=== PATIENT | female | born 1995 | race Caucasian/White ===

== ENCOUNTER 2016-06-30 17:56 | Emergency (ER) | payer SELFPAY ==
[2016-06-30 19:23] LABS: Urine Appearance Slightly Cloudy; Urine Bilirubin Negative (NEGATIVE); Urine Blood Negative /ul (NEGATIVE); Urine Color Yellow; Urine Ketone Negative (NEGATIVE); Urine Specific Gravity 1.015 SP.GR. (1.005-1.010); Urine pH 7.5 pH (5.0-7.0)
[2016-06-30 19:24] LABS: Urine Bacteria None Seen; Urine Nitrite Negative (NEGATIVE); Urine Protein Negative (NEGATIVE); Urine RBC None Seen /hpf (0-5); Urine Urobilinogen Normal (NORMAL); Urine WBC 0-5 /hpf (0-5)
[2016-06-30 19:25] LABS: Urine Amorphous Sediment Moderate - 2+ (NONE-FEW)
--- OUTSIDE RECORDS SUMMARY | 2016-06-30 20:05 | XMS REPORT | Continuity of Care Document ---
:1995 Author Organization [facility] ([facility]) Address [address] [place] [address] Phone [phone] Care Team Providers Name Role Phone Provider, No-Primary Care Primary Care Provider Unavailable Source Comments This disclosure is being made pursuant to the Care Everywhere program, applicable federal and state laws, and may not contain all informaitonavailable regarding this patient.[facility] ([facility]) Active Allergies and Adverse Reactions Allergen Noted Date Severity Reactions Comments Meloxicam 09/28/2014 Rash Tramadol 04/07/2014 Pruritus Current Medications Prescription Sig. Disp. Refills Start Date End Date Status multivitamin Take 1 tablet by Active with minerals tablet mouth daily acetaminophen 500 mg Take 1,000 mg by Active tablet mouth every 6 hours as needed albuterol 90 Use 2 Puffs by 8.5 g 11 02/21/2015 Active mcg/Actuation inhaler inhalation every 6 hours as needed cyclobenzaprine 5 mg Take 1 tablet (5 10 tablet 0 02/21/2015 Active tablet mg total) by mouth 2 times daily as needed FLUoxetine 20 mg Take 20 mg by Active tablet mouth daily. ferrous gluconate 324 Take 1 tablet 60 tablet 11 07/25/2015 Active mg (38 mg iron) tablet (324 mg total) by mouth 2 times daily. docusate 100 mg Take 1 capsule 60 capsule 11 07/25/2015 Active capsule (100 mg total) by mouth 2 times daily as needed. 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 15% of type-specific donors will be compatible. A complete antiglobulin crossmatch will be necessary and extra time will be needed to find compat ible units prior to transfusion. Please contact the transfusion medicine resident at pager #[phone] with questions. 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
[2016-06-30] MEDS ORDERED: ONDANSETRON HCL/PF 2 MG/ML VIAL IV ONE (20:06)
[2016-06-30] MEDS ORDERED: NORMAL SALINE 1,000 ML IV ONE (20:06)
[2016-06-30] MEDS ORDERED: KETOROLAC TROMETHAMINE 30 MG/ML VIAL IV ONE (20:06)
--- OUTSIDE RECORDS SUMMARY | 2016-06-30 20:06 | XMS REPORT | CCD ---
:1995 Author Name NISHI OROPEZA Address [address] Unavailable [place], [place] [id number] Care Team Providers Name Role Phone NOEMÍ ORELLANA Attending Physician Unavailable NOEMÍ ORELLANA Er Physician 1 Unavailable ROLANDO Sims Registered Nurse Unavailable Vital Signs Vital Sign Value Unit Date/Time Recent/Initial? BP Systolic 114 mmHg 10/17/2014 21:58 Initial VS BP Diastolic 60 mmHg 10/17/2014 21:58 Initial VS Allergies Allergy Code Allergy Type Reaction Status MELOXICAM 61072 Drug allergy RASH Active TRAMADOL 02040 Drug allergy HIVES Active TORADOL 88539 Drug allergy ITCHING Active Procedures Procedure Code Procedure Type Date INJECT INFUSE NEC 9929 ICD-9 CM, Volume 3 10/17/2014 INJECT INFUSE NEC 9929 ICD-9 CM, Volume 3 10/17/2014 History of Immunizations Immunization Code Date OPV 02 1993 OPV 02 1993 OPV 02 1993 OPV 02 09/21/1997 MMR 03 01/15/1995 MMR 03 09/21/1997 Hib, unspecified formulation 17 1993 Hib, unspecified formulation 17 01/15/1995 DTP-Hib 22 1993 DTP-Hib 22 1993 Hep B, unspecified formulation 45 07/06/1998 Hep B, unspecified formulation 45 09/13/1998 Hep B, unspecified formulation 45 02/22/1999 HPV, quadrivalent 62 10/20/2007 DTaP, unspecified formulation 107 01/15/1995 DTaP, unspecified formulation 107 09/21/1997 Tdap 115 09/22/2007 Tdap 115 09/09/2013 Tdap 115 06/23/2014 Novel [id number] 127 04/27/2009 Influenza, seasonal, injectable 141 01/14/2014 no vaccine administered 998 1993 Problems Problem Code Start Date Resolved Date Status LIGHT CIGARETTE SMOKER (1-9 CIGS/DAY) 855828700 09/23/2011 Active Spontaneous vaginal delivery 78188457 08/25/2014 Active Results Unknown or Not Available. Active Medications Unknown or Not Available. Medications Administered During Visit Unknown or Not Available. Encounters Encounter Diagnosis Diagnosis Code Start Date MIGRNE UNSPEC W O MEN INTRCT MIGRNE 65860 10/17/2014 Social History Smoking Status Code Start Date End Date Never smoker [id number] Patient Decision Aids Unknown or Not Available. Discharge Instructions You were admitted to [facility] on 10/17/2014 with a principal diagnosis of MIGRNE UNSPEC W O MEN INTRCT MIGRNE. You had the following procedures done:INJECT INFUSE NECINJECT INFUSE NEC You were discharged from [facility] on 10/17/2014. Should you have any questions prior to discharge, please contact a member of your healthcare team. If you have left the hospital and have any questions, please contact your primary care physician. Chief Complaint and Reason For Visit Chief Complaint Date of Onset MIGRAIN Function Status Unknown or Not Available. Plan of Care Unknown or Not Available. Referral/Transition of Care Unknown or Not Available.
--- OUTSIDE RECORDS SUMMARY | 2016-06-30 20:06 | XMS REPORT | CCD ---
:1995 Author Name SHERON LOPEZ Address [address] [facility] Unavailable [place], [place] [id number] Care Team Providers Name Role Phone SOHEILA HERMAN Attending Physician Unavailable Vital Signs Unknown. Allergies Allergy Code Allergy Type Reaction Status No Known Allergies 0 No known allergies Active Procedures Unknown. History of Immunizations Unknown. Problems Problem Code Start Date Resolved Date Status BRONCHITIS 46993998 02/01/2011 Active ABDOMINAL PAIN 22939070 09/23/2011 Active LIGHT CIGARETTE SMOKER (1-9 CIGS/DAY) 582479922 09/23/2011 Active CHEST PAIN, NON-CARDIAC 496988908 10/22/2011 Active DEPRESSION 42062627 10/22/2011 Active OTITIS MEDIA 43781423 02/08/2012 Active POST TERM , DELIVERED WITH OR 543160859 08/14/2012 Active WITHOUT MENTION OF ANTEPARTUM CONDITION IMMEDIATE HEMORRHAGE, 97866153 08/23/2012 Active URINARY TRACT INFECTION 09636473 08/23/2012 Active Personal history of urinary calculi 593469181 Active Results . PANEL Test Name Code Test Result Test Units Test Date/Time WBC 6690-2 6.2000 K/uL 04/12/2013 16:30 RBC 789-8 3.9700 M/uL 04/12/2013 16:30 HEMOGLOBIN 718-7 12.1000 g/dL 04/12/2013 16:30 HEMATOCRIT 35.6000 % 04/12/2013 16:30 MCV 89.7000 fL 04/12/2013 16:30 MCH 30.5000 PG 04/12/2013 16:30 MCHC 34.0000 G/DL 04/12/2013 16:30 RDW-SD 40.1000 FL 04/12/2013 16:30 RDW-CV 12.6000 % 04/12/2013 16:30 PLATELETS 251.0000 K/UL 04/12/2013 16:30 MPV 10.5000 FL 04/12/2013 16:30 %GRAN 74.2000 % 04/12/2013 16:30 %LYMPH 17.2000 % 04/12/2013 16:30 %MONO 7.5000 % 04/12/2013 16:30 %EOS 0.8000 % 04/12/2013 16:30 %BASO 0.3000 % 04/12/2013 16:30 #GRAN 4.5800 K/UL 04/12/2013 16:30 #LYMPH 1.0600 K/UL 04/12/2013 16:30 #MONO 0.4600 K/UL 04/12/2013 16:30 #EOS 0.0500 K/UL 04/12/2013 16:30 #BASO 0.0200 K/UL 04/12/2013 16:30 MANUAL DIFF NOT INDICATED N/A 04/12/2013 16:30 ABO/RH A NEGATIVE N/A 04/12/2013 16:30 ANTIBODY SCRN NEGATIVE N/A 04/12/2013 16:30 UA W/MICROSCOPIC EXAM Test Name Code Test Result Test Units Test Date/Time COLOR UR YELLOW N/A 04/12/2013 16:11 CLARITY UR SL CLOUDY N/A 04/12/2013 16:11 SP GRAV UR 1.032 N/A 04/12/2013 16:11 PH UR 6.0 N/A 04/12/2013 16:11 PROTEIN UR 1+ N/A 04/12/2013 16:11 GLUCOSE UR NEGATIVE N/A 04/12/2013 16:11 KETONE UR NEGATIVE N/A 04/12/2013 16:11 BILIRUBIN UR NEGATIVE N/A 04/12/2013 16:11 BLOOD UR 2+ N/A 04/12/2013 16:11 LEUK UR NEGATIVE N/A 04/12/2013 16:11 NITRITE UR NEGATIVE N/A 04/12/2013 16:11 MICRO SEE BELOW N/A 04/12/2013 16:11 RBC/hpf 3 N/A 04/12/2013 16:11 WBC/hpf 1 N/A 04/12/2013 16:11 EPI UR 10-20 N/A 04/12/2013 16:11 BACTERIA UR MANY N/A 04/12/2013 16:11 MUCOUS NONE SEE N/A 04/12/2013 16:11 CAST NONE SEEN N/A 04/12/2013 16:11 CRYSTALS SEE BELOW N/A 04/12/2013 16:11 CULTURE? ORDERED N/A 04/12/2013 16:11 Medications Medication Code Dose Units Frequency Route Modification Start Stop Date/Time Date/Time Oral 954442 1 EACH Daily ORAL 08/16/2012 Tablet 12:47 Medications Administered Unknown. Encounters Encounter Diagnosis Diagnosis Code Start Date SCREENING NOS V289 04/12/2013 Social History Smoking Status Code Start Date End Date Never smoker [id number] Patient Decision Aids Unknown. Instructions You were admitted to [facility] on 04/12/2013 with a principle diagnosis of SCREENING NOS. You were discharged from [facility] on 04/12/2013. Should you have any questions prior to discharge, please contact a member of your healthcare team. If you have left the hospital and have any questions, please contact your primary care physician. Chief Complaint and Reason For Visit Unknown. Function Status Unknown. Plan of Care Diagnostic Test Pending Plan of Care Pending Diagnostic Test CULTURE URINE, [LOINC: 630-4], 04/12/2013 .OB HEPATITIS B SURFACE ANTIGEN, [LOINC: 36929-9], 04/12/2013 CHLAMYDIA AND GC BY DNA, [LOINC: 81399-5], 04/12/2013 HIV 1/2 AB, [LOINC: 14505-6], 04/12/2013 .OB RPR, [LOINC: 48295-2], 04/12/2013 .OB ANTIBODY RUBELLA, [LOINC: 5334-8], 04/12/2013 Referral/Transition of Care Unknown.
--- OUTSIDE RECORDS SUMMARY | 2016-06-30 20:06 | XMS REPORT | CCD ---
:1995 Author Name GONSALO GALLOWAY Address [address] [facility] [facility] Unavailable [place], [place] [id number] Care Team Providers Name Role Phone RUSLAN ROBBINS Attending Physician Unavailable Vital Signs Vital Sign Value Unit Date/Time Recent/Initial? Respiratory Rate 18 bpm 04/10/2014 11:58 Initial VS Heart Rate 92 bpm 04/10/2014 11:58 Initial VS Body Temperature 98.2 degrees 04/10/2014 11:58 Initial VS BP Systolic 98 mmHg 04/10/2014 12:07 Initial VS BP Diastolic 52 mmHg 04/10/2014 12:07 Initial VS BP Systolic 94 mmHg 04/10/2014 12:30 Most Recent VS BP Diastolic 52 mmHg 04/10/2014 12:30 Most Recent VS Respiratory Rate 16 bpm 04/10/2014 12:30 Most Recent VS Heart Rate 88 bpm 04/10/2014 12:30 Most Recent VS Body Temperature 98.1 degrees 04/10/2014 12:30 Most Recent VS Weight Measured 138 lbs 04/10/2014 12:33 Initial VS Height 62 in 04/10/2014 12:33 Initial VS BMI (Body Mass Index) 25.24 kg/m^2 04/10/2014 12:33 Initial VS BSA (Body Surface Area) 1.65 m^2 04/10/2014 12:33 Initial VS Allergies Allergy Code Allergy Type Reaction Status No Known Allergies 0 No known allergies Active Procedures Unknown or Not Available. History of Immunizations Immunization Code Date OPV 1993 OPV 1993 OPV 1993 OPV 09/21/1997 MMR 01/15/1995 MMR 09/21/1997 Hib, unspecified formulation 17 1993 Hib, unspecified formulation 17 01/15/1995 DTP-Hib 1993 DTP-Hib 1993 Hep B, unspecified formulation 45 07/06/1998 Hep B, unspecified formulation 45 09/13/1998 Hep B, unspecified formulation 45 02/22/1999 HPV, quadrivalent 62 10/20/2007 DTaP, unspecified formulation 107 01/15/1995 DTaP, unspecified formulation 107 09/21/1997 Tdap 115 09/22/2007 Tdap 115 09/09/2013 Novel [id number] 127 04/27/2009 Influenza, seasonal, injectable 141 01/14/2014 no vaccine administered 998 1993 Problems Problem Code Start Date Resolved Date Status BRONCHITIS 13689779 02/01/2011 Active ABDOMINAL PAIN 88834648 09/23/2011 Active LIGHT CIGARETTE SMOKER (1-9 CIGS/DAY) 400606579 09/23/2011 Active CHEST PAIN, NON-CARDIAC 458914918 10/22/2011 Active DEPRESSION 87185077 10/22/2011 Active OTITIS MEDIA 11505833 02/08/2012 Active POST TERM , DELIVERED WITH OR 954872072 08/14/2012 Active WITHOUT MENTION OF ANTEPARTUM CONDITION IMMEDIATE HEMORRHAGE, 92626671 08/23/2012 Active URINARY TRACT INFECTION 99084097 08/23/2012 Active Personal history of urinary calculi 371514557 Active Normal delivery 37409880 09/07/2013 Active Results Unknown or Not Available. Active Medications Unknown or Not Available. Medications Administered During Visit Unknown or Not Available. Encounters Encounter Diagnosis Diagnosis Code Start Date THREATEN ABORT-ANTEPART 99517 04/10/2014 Social History Smoking Status Code Start Date End Date Never smoker 128877483 Patient Decision Aids Unknown or Not Available. Discharge Instructions You were admitted to [facility] on 04/10/2014 with a principal diagnosis of THREATEN ABORT-ANTEPART. You were discharged from [facility] on 04/10/2014. Should you have any questions prior to discharge, please contact a member of your healthcare team. If you have left the hospital and have any questions, please contact your primary care physician. Chief Complaint and Reason For Visit Chief Complaint Date of Onset ABD PAIN Function Status Unknown or Not Available. Plan of Care Unknown or Not Available. Referral/Transition of Care Unknown or Not Available.
--- OUTSIDE RECORDS SUMMARY | 2016-06-30 20:06 | XMS REPORT | CCD ---
:1995 Author Name SHEREEN MARINELLI Address [address] [facility] Unavailable [place], [place] [phone] Care Team Providers Name Role Phone SOHEILA HERMAN Attending Physician Unavailable Vital Signs Vital Sign Value Unit Date/Time Recent/Initial? BP Systolic 112 mmHg 06/29/2013 21:09 Initial VS BP Diastolic 67 mmHg 06/29/2013 21:09 Initial VS Respiratory Rate 18 bpm 06/29/2013 21:09 Initial VS Heart Rate 100 bpm 06/29/2013 21:09 Initial VS Body Temperature 97.9 degrees 06/29/2013 21:09 Initial VS Weight Measured 137 lbs 06/29/2013 21:24 Initial VS Height 63 in 06/29/2013 21:24 Initial VS BMI (Body Mass Index) 24.27 kg/m^2 06/29/2013 21:24 Initial VS BSA (Body Surface Area) 1.66 m^2 06/29/2013 21:24 Initial VS Allergies Allergy Code Allergy Type Reaction Status No Known Allergies 0 No known allergies Active Procedures Unknown. History of Immunizations Unknown. Problems Problem Code Start Date Resolved Date Status BRONCHITIS 54569951 02/01/2011 Active ABDOMINAL PAIN 19717038 09/23/2011 Active LIGHT CIGARETTE SMOKER (1-9 CIGS/DAY) 163558890 09/23/2011 Active CHEST PAIN, NON-CARDIAC 276977376 10/22/2011 Active DEPRESSION 04381935 10/22/2011 Active OTITIS MEDIA 20562718 02/08/2012 Active POST TERM , DELIVERED WITH OR 613495086 08/14/2012 Active WITHOUT MENTION OF ANTEPARTUM CONDITION IMMEDIATE HEMORRHAGE, 45809947 08/23/2012 Active URINARY TRACT INFECTION 95082909 08/23/2012 Active Personal history of urinary calculi 193254192 Active Results Unknown. Medications Medication Code Dose Units Frequency Route Modification Start Stop Date/Time Date/Time Oral 146953 1 EACH Daily ORAL 08/16/2012 Tablet 12:47 Medications Administered Unknown. Encounters Encounter Diagnosis Diagnosis Code Start Date THRT CRYSTAL LABOR-ANTEPART 90361 06/29/2013 Social History Smoking Status Code Start Date End Date Never smoker 490804281 Patient Decision Aids Unknown. Discharge Instructions You were admitted to [facility] on 06/29/2013 with a principle diagnosis of THRT CRYSTAL LABOR-ANTEPART. You were discharged from [facility] on 06/29/2013. Should you have any questions prior to discharge, please contact a member of your healthcare team. If you have left the hospital and have any questions, please contact your primary care physician. Chief Complaint and Reason For Visit Unknown. Function Status Unknown. Plan of Care Unknown. Referral/Transition of Care Unknown.
--- OUTSIDE RECORDS SUMMARY | 2016-06-30 20:06 | XMS REPORT | CCD ---
:1995 Author Name EMILY SMITH Address [address] [facility] Unavailable [place], [place] [phone] Care Team Providers Name Role Phone MIKE SOUSA Attending Physician Unavailable Vital Signs Unknown or Not Available. Allergies Allergy Code Allergy Type Reaction Status TRAMADOL 58878 Drug allergy HIVES Active Procedures Unknown or Not Available. History of Immunizations Immunization Code Date OPV 1993 OPV 02 1993 OPV 02 1993 [...] Tdap 115 09/09/2013 Tdap 115 06/23/2014 Novel [id number] 127 04/27/2009 Influenza, seasonal, injectable 141 01/14/2014 no vaccine administered 998 1993 Problems Problem Code Start Date Resolved Date Status LIGHT CIGARETTE SMOKER (1-9 CIGS/DAY) 862289933 09/23/2011 Active Spontaneous vaginal delivery 89267917 08/25/2014 Active Results Unknown or Not Available. Active Medications Medication Code Dose Units Frequency Route Modification Start Date/Time Dermoplast 194529 1 APPLICATIONS NEEDED TOPICALLY 08/27/2014 20%-0.5% 12:06 Topical application Magnolia Prescription Detail APPLY 1 APPLICATIONS TOPICALLY NEEDED Docusate Sodium 100MG 2387231 100 MILLIGRAMS TWICE A DAY BY MOUTH 08/27 12:06 Oral Capsule Prescription Detail TAKE 100 MILLIGRAMS BY MOUTH TWICE A DAY Ferrous Sulfate 325MG 073345 325 MILLIGRAMS TWICE A DAY BY MOUTH 2014 12:06 Oral Tablet, Enteric Coated Prescription Detail TAKE 325 MILLIGRAMS BY MOUTH TWICE A DAY Tucks 50% Topical 85630538709 1 EA PRN NEEDED TOPICALLY 08/27/2014 12:06 application Pad Prescription Detail APPLY 1 EA TOPICALLY PRN NEEDED Ibuprofen 600MG Oral 244779 600 MILLIGRAMS PRN Q 6 HR BY MOUTH 2014 12:05 Tablet Prescription Detail TAKE 600 MILLIGRAMS BY MOUTH PRN Q 6 HR Mapap 325MG Oral Tablet 125678 650 MILLIGRAMS PRN Q 4HR BY MOUTH 2014 12:05 Prescription Detail TAKE 650 MILLIGRAMS BY MOUTH PRN Q 4HR Formula Oral Tablet 694574 1 EACH DAILY ORAL 02/16/2014 12:25 Prescription Detail TAKE 1 EACH ORAL DAILY Medications Administered During Visit Unknown or Not Available. Encounters Encounter Diagnosis Diagnosis Code Start Date OTH CURR COND- 17417 08/30/2014 Social History Smoking Status Code Start Date End Date Never smoker 266704334 Patient Decision Aids Unknown or Not Available. Discharge Instructions You were admitted to [facility] on 08/30/2014 with a principal diagnosis of OTH CURR COND-. You were discharged from [facility] on 08/30/2014. Should you have any questions prior to discharge, please contact a member of your healthcare team. If you have left the hospital and have any questions, please contact your primary care physician. Chief Complaint and Reason For Visit Unknown or Not Available. Function Status Unknown or Not Available. Plan of Care Unknown or Not Available. Referral/Transition of Care Unknown or Not Available.
--- OUTSIDE RECORDS SUMMARY | 2016-06-30 20:06 | XMS REPORT | CCD ---
:1995 Author Name SHERON LOPEZ Address [address] [facility] Unavailable [place], [place] [phone] Care Team Providers Name Role Phone SOHEILA HERMAN Attending Physician Unavailable Vital Signs Unknown. Allergies Allergy Code Allergy Type Reaction Status No Known Allergies 0 No known allergies Active Procedures Unknown. History of Immunizations Unknown. Problems Problem Code Start Date Resolved Date Status BRONCHITIS 11505754 02/01/2011 Active ABDOMINAL PAIN 72065647 09/23/2011 Active LIGHT CIGARETTE SMOKER (1-9 CIGS/DAY) 566106781 09/23/2011 Active CHEST PAIN, NON-CARDIAC 679156676 10/22/2011 Active DEPRESSION 54616145 10/22/2011 Active OTITIS MEDIA 57638159 02/08/2012 Active POST TERM , DELIVERED WITH OR 226208492 08/14/2012 Active WITHOUT MENTION OF ANTEPARTUM CONDITION IMMEDIATE HEMORRHAGE, 74374683 08/23/2012 Active URINARY TRACT INFECTION 25012226 08/23/2012 Active Personal history of urinary calculi 324352379 Active Results Unknown. Medications Medication Code Dose Units Frequency Route Modification Start Stop Date/Time Date/Time Oral 212298 1 EACH Daily ORAL 08/16/2012 Tablet 12:47 Medications Administered Unknown. Encounters Encounter Diagnosis Diagnosis Code Start Date ENCOUNTER FOR ANATOMIC SURVEY V2881 04/20/2013 Social History Smoking Status Code Start Date End Date Never smoker [id number] Patient Decision Aids Unknown. Instructions You were admitted to [facility] on 04/20/2013 with a principle diagnosis of ENCOUNTER FOR ANATOMIC SURVEY. You were discharged from [facility] on 04/20/2013. Should you have any questions prior to discharge, please contact a member of your healthcare team. If you have left the hospital and have any questions, please contact your primary care physician. Chief Complaint and Reason For Visit Unknown. Function Status Unknown. Plan of Care Unknown. Referral/Transition of Care Unknown.
--- OUTSIDE RECORDS SUMMARY | 2016-06-30 20:06 | XMS REPORT | CCD ---
:1995 Author Name SHEREEN MARINELLI Address [address] [facility] Unavailable [place], [place] [id number] Care Team Providers Name Role Phone SOHEILA HERMAN Attending Physician Unavailable EDWAR Lynch Registered Nurse Unavailable Vital Signs Vital Sign Value Unit Date/Time Recent/Initial? Weight Measured 148.8 lbs 07/22/2013 12:11 Initial VS Height 63 in 07/22/2013 12:11 Initial VS BMI (Body Mass Index) 26.22 kg/m^2 07/22/2013 12:11 Initial VS BSA (Body Surface Area) 1.73 m^2 07/22/2013 12:11 Initial VS BP Systolic 121 mmHg 07/22/2013 12:26 Initial VS BP Diastolic 61 mmHg 07/22/2013 12:26 Initial VS Respiratory Rate 18 bpm 07/22/2013 12:26 Initial VS Heart Rate 108 bpm 07/22/2013 12:26 Initial VS Body Temperature 95.2 degrees 07/22/2013 12:26 Initial VS Allergies Allergy Code Allergy Type Reaction Status No Known Allergies 0 No known allergies Active Procedures Unknown. History of Immunizations Immunization Code Date OPV [...] unspecified formulation 107 09/21/1997 Tdap 115 09/22/2007 Novel [id number] 127 04/27/2009 no vaccine administered 998 1993 Problems Problem Code Start Date Resolved Date Status BRONCHITIS 46533459 02/01/2011 Active ABDOMINAL PAIN 06396221 09/23/2011 Active LIGHT CIGARETTE SMOKER (1-9 CIGS/DAY) 003002091 09/23/2011 Active CHEST PAIN, NON-CARDIAC 904156845 10/22/2011 Active DEPRESSION 42387587 10/22/2011 Active OTITIS MEDIA 12683788 02/08/2012 Active POST TERM , DELIVERED WITH OR 182695184 08/14/2012 Active WITHOUT MENTION OF ANTEPARTUM CONDITION IMMEDIATE HEMORRHAGE, 15328545 08/23/2012 Active URINARY TRACT INFECTION 09675784 08/23/2012 Active Personal history of urinary calculi 075614862 Active Results COMPREHENSIVE METABOLIC PANEL Test Name Code Test Result Test Units Test Date/Time GLUCOSE 82.0000 mg/dL 07/22/2013 13:46 SODIUM 137.0000 mmol/L 07/22/2013 13:46 POTASSIUM 4.0000 mmol/L 07/22/2013 13:46 CHLORIDE 104.0000 mmol/L 07/22/2013 13:46 CO2 24.0000 mmol/L 07/22/2013 13:46 BUN 6.0000 mg/dL 07/22/2013 13:46 CREATININE 0.4000 mg/dL 07/22/2013 13:46 BUN/CREAT 15.0000 07/22/2013 13:46 CALCIUM 8.8000 mg/dL 07/22/2013 13:46 TOTAL BILI 0.1000 mg/dL 07/22/2013 13:46 TOTAL PROTEIN 6.8000 g/dL 07/22/2013 13:46 ALBUMIN 2.5000 g/dL 07/22/2013 13:46 A/G RATIO 0.6000 07/22/2013 13:46 ALKALINE PHOS 152.0000 IU/L 07/22/2013 13:46 AST/SGOT 24.0000 IU/L 07/22/2013 13:46 ALT/SGPT 52.0000 IU/L 07/22/2013 13:46 ANION GAP 13.5000 mmol/L 07/22/2013 13:46 AGE 18.0000 YEARS 07/22/2013 13:46 GFR 216.2900 ml/min 07/22/2013 13:46 URINALYSIS Test Name Code Test Result Test Units Test Date/Time COLOR UR LT YELLOW N/A 07/22/2013 13:34 CLARITY UR CLEAR N/A 07/22/2013 13:34 SP GRAV UR 1.015 N/A 07/22/2013 13:34 PH UR 7.5 N/A 07/22/2013 13:34 PROTEIN UR TRACE N/A 07/22/2013 13:34 GLUCOSE UR NEGATIVE N/A 07/22/2013 13:34 KETONE UR NEGATIVE N/A 07/22/2013 13:34 BILIRUBIN UR NEGATIVE N/A 07/22/2013 13:34 BLOOD UR NEGATIVE N/A 07/22/2013 13:34 LEUK UR 3+ N/A 07/22/2013 13:34 NITRITE UR NEGATIVE N/A 07/22/2013 13:34 MICROSCOPIC NOT INDICAT N/A 07/22/2013 13:34 CULTURE? YES N/A 07/22/2013 13:34 CBC WITH DIFFERENTIAL Test Name Code Test Result Test Units Test Date/Time WBC 6690-2 17.6000 K/uL 07/22/2013 13:46 RBC 789-8 3.5200 M/uL 07/22/2013 13:46 HEMOGLOBIN 718-7 11.0000 g/dL 07/22/2013 13:46 HEMATOCRIT 32.4000 % 07/22/2013 13:46 MCV 92.0000 fL 07/22/2013 13:46 MCH 31.3000 PG 07/22/2013 13:46 MCHC 34.0000 G/DL 07/22/2013 13:46 RDW-SD 42.2000 FL 07/22/2013 13:46 RDW-CV 12.8000 % 07/22/2013 13:46 PLATELETS 368.0000 K/UL 07/22/2013 13:46 MPV 10.1000 FL 07/22/2013 13:46 %GRAN 75.0000 % 07/22/2013 13:46 %LYMPH 17.0000 % 07/22/2013 13:46 %MONO 7.2000 % 07/22/2013 13:46 %EOS 0.6000 % 07/22/2013 13:46 %BASO 0.2000 % 07/22/2013 13:46 #GRAN 13.2200 K/UL 07/22/2013 13:46 #LYMPH 3.0000 K/UL 07/22/2013 13:46 #MONO 1.2700 K/UL 07/22/2013 13:46 #EOS 0.1100 K/UL 07/22/2013 13:46 #BASO 0.0400 K/UL 07/22/2013 13:46 SLIDE REVIEWED? NOT INDICATED N/A 07/22/2013 13:46 MANUAL DIFF NOT INDICATED N/A 07/22/2013 13:46 Medications Medication Code Dose Units Frequency Route Modification Start Stop Date/Time Date/Time Oral 042256 1 EACH Daily ORAL 08/16/2012 Tablet 12:47 Medications Administered Unknown. Encounters Encounter Diagnosis Diagnosis Code Start Date THRT CRYSTAL LABOR-ANTEPART 04928 07/22/2013 Social History Smoking Status Code Start Date End Date Never smoker [id number] Patient Decision Aids Unknown. Discharge Instructions You were admitted to [facility] on 07/22/2013 with a principle diagnosis of THRT CRYSTAL LABOR-ANTEPART. You had the following procedures done: NON-STRESS TEST You were discharged from [facility] on 07/22/2013. Should you have any questions prior to discharge, please contact a member of your healthcare team. If you have left the hospital and have any questions, please contact your primary care physician.For undelivered patients, call MD if:Severe headaches, blurred vision, Dizziness.Increased swelling that doesn't go away, Vaginal bleeding.Water breaks or you have leaking fluid, Contractions in a regular pattern.You do not feel your baby move in 8 hrs, Uncontrolled urge to push.Change in condition that concerns you, Any questions about your condition.Patient condition at discharge:Not in labor.Discharge via:Ambulatory.Accompanied by:Significant other.Additional Instructions:Drink 10-12 glasses of fluid daily.Medication Instructions:Rx called to [facility] for cipro 500mg two times a day for 7 days Chief Complaint and Reason For Visit Unknown. Function Status Unknown. Plan of Care Unknown. Referral/Transition of Care Unknown.
--- OUTSIDE RECORDS SUMMARY | 2016-06-30 20:06 | XMS REPORT | CCD ---
:1995 Author Name SHEREEN MARINELLI Address [address] [facility] Unavailable [place], [place] [phone] Care Team Providers Name Role Phone SOHEILA HERMAN Attending Physician Unavailable Vital Signs Vital Sign Value Unit Date/Time Recent/Initial? BP Systolic 98 mmHg 08/24/2013 10:53 Initial VS BP Diastolic 69 mmHg 08/24/2013 10:53 Initial VS Respiratory Rate 18 bpm 08/24/2013 10:53 Initial VS Heart Rate 103 bpm 08/24/2013 10:53 Initial VS Body Temperature 97.2 degrees 08/24/2013 10:53 Initial VS BP Systolic 108 mmHg 08/24/2013 12:58 Most Recent VS BP Diastolic 67 mmHg 08/24/2013 12:58 Most Recent VS Respiratory Rate 18 bpm 08/24/2013 12:58 Most Recent VS Heart Rate 63 bpm 08/24/2013 12:58 Most Recent VS Weight Measured 151 lbs 08/24/2013 13:37 Initial VS Height 62 in 08/24/2013 13:37 Initial VS BMI (Body Mass Index) 27.62 kg/m^2 08/24/2013 13:37 Initial VS BSA (Body Surface Area) 1.73 m^2 08/24/2013 13:37 Initial VS Allergies Allergy Code Allergy Type Reaction Status No Known Allergies 0 No known allergies Active Procedures Unknown or Not Available. History of Immunizations Immunization Code Date OPV 1993 OPV 1993 OPV 1993 OPV 02 09/21/1997 MMR 03 01/15/1995 MMR 03 09/21/1997 Hib, unspecified formulation 17 1993 Hib, unspecified formulation 17 01/15/1995 DTP-Hib 22 1993 DTP-Hib 22 1993 Hep B, unspecified formulation 45 07/06/1998 Hep B, unspecified formulation 45 09/13/1998 Hep B, unspecified formulation 45 02/22/1999 HPV, quadrivalent 62 10/20/2007 DTaP, unspecified formulation 107 01/15/1995 DTaP, unspecified formulation 107 09/21/1997 Tdap 115 09/22/2007 Novel [id number] 127 04/27/2009 no vaccine administered 998 1993 Problems Problem Code Start Date Resolved Date Status BRONCHITIS 67333737 02/01/2011 Active ABDOMINAL PAIN 71684581 09/23/2011 Active LIGHT CIGARETTE SMOKER (1-9 CIGS/DAY) 379724506 09/23/2011 Active CHEST PAIN, NON-CARDIAC 488375712 10/22/2011 Active DEPRESSION 37828990 10/22/2011 Active OTITIS MEDIA 05932830 02/08/2012 Active POST TERM , DELIVERED WITH OR 607605207 08/14/2012 Active WITHOUT MENTION OF ANTEPARTUM CONDITION IMMEDIATE HEMORRHAGE, 80909423 08/23/2012 Active URINARY TRACT INFECTION 61354460 08/23/2012 Active Personal history of urinary calculi 921961981 Active Results Unknown or Not Available. Medications Medication Code Dose Units Frequency Route Modification Start Stop Date/Time Date/Time Oral 829765 1 EACH Daily ORAL 08/16/2012 Tablet 12:47 Medications Administered Unknown or Not Available. Encounters Encounter Diagnosis Diagnosis Code Start Date THRT CRYSTAL LABOR-ANTEPART 33320 08/24/2013 Social History Smoking Status Code Start Date End Date Never smoker [id number] Patient Decision Aids Unknown or Not Available. Discharge Instructions You were admitted to [facility] on 08/24/2013 with a principal diagnosis of THRT CRYSTAL LABOR-ANTEPART. You had the following procedures done: NON-STRESS TEST You were discharged from [facility] on 08/24/2013. Should you have any questions prior to [...]
--- OUTSIDE RECORDS SUMMARY | 2016-06-30 20:06 | XMS REPORT | CCD ---
:1995 Author Name GONSALO GALLOWAY Address [address] [facility] Unavailable [place], [place] [address] Care Team Providers Name Role Phone RUSLAN ROBBINS Attending Physician ROJELIO Ramirez Registered Nurse Unavailable Vital Signs Vital Sign Value Unit Date/Time Recent/Initial? Respiratory Rate 24 bpm 08/24/2014 19:30 Initial VS Weight Measured 179 lbs 08/24/2014 19:33 Initial VS Height 63 in 08/24/2014 19:33 Initial VS BMI (Body Mass Index) 31.71 kg/m^2 08/24/2014 19:33 Initial VS BSA (Body Surface Area) 1.9 m^2 08/24/2014 19:33 Initial VS Heart Rate 82 bpm 08/24/2014 19:56 Initial VS O2 % BldC Oximetry 98 % 08/24/2014 19:56 Initial VS BP Systolic 111 mmHg 08/24/2014 20:06 Initial VS BP Diastolic 67 mmHg 08/24/2014 20:06 Initial VS Body Temperature 97 degrees 08/24/2014 20:06 Initial VS O2 % BldC Oximetry 96 % 08/25/2014 04:37 Most Recent VS BP Systolic 123 mmHg 08/27/2014 12:45 Most Recent VS BP Diastolic 62 mmHg 08/27/2014 12:45 Most Recent VS Respiratory Rate 16 bpm 08/27/2014 12:45 Most Recent VS Heart Rate 72 bpm 08/27/2014 12:45 Most Recent VS Body Temperature 97.3 degrees 08/27/2014 12:45 Most Recent VS Allergies Allergy Code Allergy Type Reaction Status TRAMADOL 65644 Drug allergy HIVES Active Procedures Procedure Code Procedure Type Date MANUAL ASSIST DELIV NEC 7359 ICD-9 CM, Volume 3 08/25/2014 History of Immunizations Immunization Code Date OPV 1993 OPV 02 1993 OPV 1993 OPV 02 09/21/1997 MMR 03 01/15/1995 MMR 09/21/1997 Hib, unspecified formulation 17 1993 Hib, unspecified formulation 17 01/15/1995 DTP-Hib 22 1993 DTP-Hib 22 1993 Hep B, unspecified formulation 45 07/06/1998 Hep B, unspecified formulation 45 09/13/1998 Hep B, unspecified formulation 45 02/22/1999 HPV, quadrivalent 62 10/20/2007 DTaP, unspecified formulation 107 01/15/1995 DTaP, unspecified formulation 107 09/21/1997 Tdap 115 09/22/2007 Tdap 115 09/09/2013 Tdap 115 06/23/2014 Novel [id number] 127 04/27/2009 Influenza, seasonal, injectable 141 01/14/2014 no vaccine administered 998 1993 Problems Problem Code Start Date Resolved Date Status LIGHT CIGARETTE SMOKER (1-9 CIGS/DAY) 570450794 09/23/2011 Active Spontaneous vaginal delivery 72489509 08/25/2014 Active Results CBC W/DIFF - Collect Date/Time: 08/24/2014 19:55 Test Name Code Test Result Test Units Test Ref Range WBC 6690-2 15.3 K/uL L=3.2 H=10.0 RBC 789-8 3.77 M/uL L=4.00 H=5.20 HEMOGLOBIN 718-7 10.2 g/dL L=12.1 H=15.6 HEMATOCRIT 31.1 % L=35.0 H=47.0 MCV 82.5 fL L=81.0 H=101 MCH 27.1 PG L=26.0 H=38.0 MCHC 32.8 G/DL L=31.0 H=37.0 RDW-SD 43.9 FL L=37.0 H=54.0 RDW-CV 14.9 % L=11.0 H=16.0 PLATELETS 312 K/UL L=140 H=380 MPV 11.1 FL L=9.0 H=13.0 %GRAN 71.9 % L=0.0 H=75.0 %LYMPH 18.4 % L=0.0 H=50.0 %MONO 8.6 % L=0.0 H=14.0 %EOS 1.0 % L=0.0 H=6.0 %BASO 0.1 % L=0.0 H=1.0 #GRAN 10.98 K/UL L=1.80 H=7.80 #LYMPH 2.81 K/UL L=0.30 H=4.00 #MONO 1.31 K/UL L=0.00 H=0.70 #EOS 0.16 K/UL L=0.00 H=0.40 #BASO 0.02 K/UL L=0.00 H=0.10 SLIDE REVIEWED? NOT INDICATED N/A MANUAL DIFF NOT INDICATED N/A HEMOGLOBIN AND HEMATOCRIT - Collect Date/Time: 08/26/2014 07:25 Test Name Code Test Result Test Units Test Ref Range HEMOGLOBIN 718-7 8.3 g/dL L=12.1 H=15.6 HEMATOCRIT 25.6 % L=35.0 H=47.0 BB SCREEN - Collect Date/Time: 08/26/2014 07:25 Test Name Code Test Result Test Units Test Ref Range SCREEN NEGATIVE N/A NORMAL:NEGATIVE BB RHOGAM - Collect Date/Time: 08/26/2014 07:25 Test Name Code Test Result Test Units Test Ref Range LOT # [id number] N/A EXPIRATION 04/28/2016 N/A Active Medications Medication Code Dose Units Frequency Route Modification Start Date/Time Dermoplast 394930 1 APPLICATIONS NEEDED TOPICALLY 08/27/2014 20%-0.5% 12:06 Topical application [place] Docusate 5285834 100 MILLIGRAMS TWICE A BY MOUTH 08/27/2014 Sodium 100MG DAY 12:06 Oral Capsule Ferrous 497142 325 MILLIGRAMS TWICE A BY MOUTH 08/27/2014 Sulfate DAY 12:06 325MG Oral Tablet, Enteric Coated Tucks 50% [id number] 1 EA PRN TOPICALLY 08/27/2014 Topical NEEDED 12:06 application Pad Ibuprofen 081790 600 MILLIGRAMS PRN Q 6 HR BY MOUTH 08/27/2014 600MG Oral 12:05 Tablet Mapap 325MG 596204 650 MILLIGRAMS PRN Q 4HR BY MOUTH 08/27/2014 Oral Tablet 12:05 034177 1 EACH DAILY ORAL 02/16/2014 Formula Oral 12:25 Tablet Medications Administered During Visit Medication Dose Units Frequency Route Date/Time of Last Dose SODIUM CHLORIDE LOCK FLUSH 3 ML EVERY 12 HOURS IV PUSH 08/26/2014 07:33 : 3ML SODIUM CHLORIDE LOCK FLUSH 3 ML PRN IV PUSH 08/26/2014 14:17 : 3ML NALBUPHINE(NUBAIN)INJ 10 MG X1 IV PUSH 08/25/2014 02:02 20MG/ML:1ML IBUPROFEN(MOTRIN)TAB:600MG 600 MG PRN Q 6 HR ORAL 08/27/2014 07:52 ACETAMINOPHEN(TYLENOL)TAB:3 650 MG PRN Q 4HR ORAL 08/26/2014 21:07 25MG HAMAMELIS LEAF/GLYCE 1 PAD PRN NEEDED TOPICAL 08/26/2014 14:17 (TUCKS) PAD OXYTOCIN (PITOCIN) INJ : 10 10 UNIT DIRECTED IM 08/25/2014 07:56 UNITS DOCUSATE SODIUM CAP : 100MG 100 MG TWICE DAILY ORAL 08/27/2014 07:52 VIT (NATALCARE PIC 1 TAB DAILY ORAL 08/27/2014 07:52 FORTE):TAB BENZOCAINE/MENTHOL/ALOE/LINDA 1 APPL PRN TOPICAL 08/26/2014 14:17 O(DERMOPLAST) FERROUS SULFATE (FEOSOL) 325 MG DAILY WITH FOOD ORAL 08/26/2014 17:10 TAB : 325MG ONDANSETRON INJ 2MG/ML: 2ML 4 MG X1 IV PUSH 08/26/2014 14:17 FERROUS SULFATE (FEOSOL) 325 MG TWICE DAILY ORAL 08/27/2014 07:52 TAB : 325MG Encounters Encounter Diagnosis Diagnosis Code Start Date RH ISOIMMUNIZAT-DELIVER 41700 08/24/2014 Social History Smoking Status Code Start Date End Date Former smoker [id number] Patient Decision Aids Patient Decision Aid [facility] Patient Educational materials Discharge Instructions You were admitted to [facility] on 08/24/2014 with a principal diagnosis of RH ISOIMMUNIZAT-DELIVER. You had the following procedures done:MANUAL ASSIST DELIV NEC You were discharged from [facility] on 08/27/2014. Should you have any questions prior to discharge, please contact a member of your healthcare team. If you have left the hospital and have any questions, please contact your primary care physician. Chief Complaint and Reason For Visit Chief Complaint Date of Onset LABOR AND DEL Function Status Unknown or Not Available. Plan of Care Unknown or Not Available. Referral/Transition of Care Unknown or Not Available.
--- OUTSIDE RECORDS SUMMARY | 2016-06-30 20:06 | XMS REPORT | CCD ---
:1995 Author Name SHERON LOPEZ Address [address] [facility] Unavailable [place], [place] [id number] Care Team Providers Name Role Phone SOHEILA HERMAN Attending Physician Unavailable Vital Signs Unknown. Allergies Allergy Code Allergy Type Reaction Status No Known Allergies 0 No known allergies Active Procedures Unknown. History of Immunizations Unknown. Problems Problem Code Start Date Resolved Date Status BRONCHITIS 26945596 02/01/2011 Active ABDOMINAL PAIN 44329159 09/23/2011 Active LIGHT CIGARETTE SMOKER (1-9 CIGS/DAY) 687184482 09/23/2011 Active CHEST PAIN, NON-CARDIAC 347852589 10/22/2011 Active DEPRESSION 82479392 10/22/2011 Active OTITIS MEDIA 89252487 02/08/2012 Active POST TERM , DELIVERED WITH OR 611943881 08/14/2012 Active WITHOUT MENTION OF ANTEPARTUM CONDITION IMMEDIATE HEMORRHAGE, 07972354 08/23/2012 Active URINARY TRACT INFECTION 10927157 08/23/2012 Active Personal history of urinary calculi 767691547 Active Results COMPREHENSIVE METABOLIC PANEL Test Name Code Test Result Test Units Test Date/Time GLUCOSE 89.0000 mg/dL 07/15/2013 14:58 SODIUM 139.0000 mmol/L 07/15/2013 14:58 POTASSIUM 3.6000 mmol/L 07/15/2013 14:58 CHLORIDE 107.0000 mmol/L 07/15/2013 14:58 CO2 22.0000 mmol/L 07/15/2013 14:58 BUN 6.0000 mg/dL 07/15/2013 14:58 CREATININE 0.5000 mg/dL 07/15/2013 14:58 BUN/CREAT 12.0000 07/15/2013 14:58 CALCIUM 8.5000 mg/dL 07/15/2013 14:58 TOTAL BILI 0.1000 mg/dL 07/15/2013 14:58 TOTAL PROTEIN 5.8000 g/dL 07/15/2013 14:58 ALBUMIN 2.5000 g/dL 07/15/2013 14:58 A/G RATIO 0.8000 07/15/2013 14:58 ALKALINE PHOS 120.0000 IU/L 07/15/2013 14:58 AST/SGOT 14.0000 IU/L 07/15/2013 14:58 ALT/SGPT 17.0000 IU/L 07/15/2013 14:58 ANION GAP 13.4000 mmol/L 07/15/2013 14:58 AGE 18.0000 YEARS 07/15/2013 14:58 GFR 167.1800 ml/min 07/15/2013 14:58 URINALYSIS Test Name Code Test Result Test Units Test Date/Time COLOR UR LT YELLOW N/A 07/15/2013 14:52 CLARITY UR CLEAR N/A 07/15/2013 14:52 SP GRAV UR 1.008 N/A 07/15/2013 14:52 PH UR 6.5 N/A 07/15/2013 14:52 PROTEIN UR NEGATIVE N/A 07/15/2013 14:52 GLUCOSE UR NEGATIVE N/A 07/15/2013 14:52 KETONE UR NEGATIVE N/A 07/15/2013 14:52 BILIRUBIN UR NEGATIVE N/A 07/15/2013 14:52 BLOOD UR NEGATIVE N/A 07/15/2013 14:52 LEUK UR TRACE N/A 07/15/2013 14:52 NITRITE UR NEGATIVE N/A 07/15/2013 14:52 MICROSCOPIC NOT INDICAT N/A 07/15/2013 14:52 CULTURE? NO N/A 07/15/2013 14:52 Medications Medication Code Dose Units Frequency Route Modification Start Stop Date/Time Date/Time Oral 037098 1 EACH Daily ORAL 08/16/2012 Tablet 12:47 Medications Administered Unknown. Encounters Encounter Diagnosis Diagnosis Code Start Date SCREENING NOS V289 07/15/2013 Social History Smoking Status Code Start Date End Date Never smoker [id number] Patient Decision Aids Unknown. Discharge Instructions You were admitted to [facility] on 07/15/2013 with a principle diagnosis of SCREENING NOS. You had the following procedures done:DX ULTRASOUND-ABDOMEN You were discharged from [facility] on 07/15/2013. Should you have any questions prior to discharge, please contact a member of your healthcare team. If you have left the hospital and have any questions, please contact your primary care physician. Chief Complaint and Reason For Visit Unknown. Function Status Unknown. Plan of Care Unknown. Referral/Transition of Care Unknown.
--- OUTSIDE RECORDS SUMMARY | 2016-06-30 20:06 | XMS REPORT | CCD ---
:1995 Author Name SHERON LOPEZ Address [address] [facility] Unavailable [place], [place] [id number] Care Team Providers Name Role Phone SOHEILA HERMAN Attending Physician Unavailable Vital Signs Unknown. Allergies Allergy Code Allergy Type Reaction Status No Known Allergies 0 No known allergies Active Procedures Unknown. History of Immunizations Unknown. Problems Problem Code Start Date Resolved Date Status BRONCHITIS 53775153 02/01/2011 Active ABDOMINAL PAIN 95457427 09/23/2011 Active LIGHT CIGARETTE SMOKER (1-9 CIGS/DAY) 872849341 09/23/2011 Active CHEST PAIN, NON-CARDIAC 118651250 10/22/2011 Active DEPRESSION 28018481 10/22/2011 Active OTITIS MEDIA 10699034 02/08/2012 Active POST TERM , DELIVERED WITH OR 418781773 08/14/2012 Active WITHOUT MENTION OF ANTEPARTUM CONDITION IMMEDIATE HEMORRHAGE, 90010618 08/23/2012 Active URINARY TRACT INFECTION 34639459 08/23/2012 Active Personal history of urinary calculi 203501212 Active Results Unknown. Medications Medication Code Dose Units Frequency Route Modification Start Stop Date/Time Date/Time Oral 929368 1 EACH Daily ORAL 08/16/2012 Tablet 12:47 Medications Administered Unknown. Encounters Encounter Diagnosis Diagnosis Code Start Date ENCOUNTER FOR ANATOMIC SURVEY V2881 05/25/2013 Social History Smoking Status Code Start Date End Date Never smoker [id number] Patient Decision Aids Unknown. Instructions You were admitted to [facility] on 05/25/2013 with a principle diagnosis of ENCOUNTER FOR ANATOMIC SURVEY. You had the following procedures done:DX ULTRASOUND-GRAV UTER You were discharged from [facility] on 05/25/2013. Should you have any questions prior to discharge, please contact a member of your healthcare team. If you have left the hospital and have any questions, please contact your primary care physician. Chief Complaint and Reason For Visit Unknown. Function Status Unknown. Plan of Care Unknown. Referral/Transition of Care Unknown.
--- OUTSIDE RECORDS SUMMARY | 2016-06-30 20:06 | XMS REPORT | CCD ---
:1995 Author Name SHERON LOPEZ Address [address] [facility] Unavailable [place], [place] [phone] Care Team Providers Name Role Phone MIKE SOUSA Attending Physician Unavailable Vital Signs Unknown or Not Available. Allergies Allergy Code Allergy Type Reaction Status TRAMADOL 30170 Drug allergy HIVES Active Procedures Unknown or [...] Tdap 115 09/09/2013 Tdap 115 06/23/2014 Novel [id number] 127 04/27/2009 Influenza, seasonal, injectable 141 01/14/2014 no vaccine administered 998 1993 Problems Problem Code Start Date Resolved Date Status BRONCHITIS 15437169 02/01/2011 Active ABDOMINAL PAIN 16840610 09/23/2011 Active LIGHT CIGARETTE SMOKER (1-9 CIGS/DAY) 882276796 09/23/2011 Active CHEST PAIN, NON-CARDIAC 407254115 10/22/2011 Active DEPRESSION 99550789 10/22/2011 Active OTITIS MEDIA 18078231 02/08/2012 Active POST TERM , DELIVERED WITH OR 190490539 08/14/2012 Active WITHOUT MENTION OF ANTEPARTUM CONDITION IMMEDIATE HEMORRHAGE, 83057891 08/23/2012 Active URINARY TRACT INFECTION 41070701 08/23/2012 Active Personal history of urinary calculi 859770895 Active Normal delivery 81712231 09/07/2013 Active Results Unknown or Not Available. Active Medications Medication Code Dose Units Frequency Route Modification Start Date/Time Latuda 20MG Oral 4143425 20 MILLIGRAMS DAILY ORAL 08/01/2014 Tablet 22:39 Macrodantin 100MG 151715 100 MILLIGRAMS DAILY ORAL 08/01/2014 Oral Capsule 22:39 Formula 666623 1 EACH DAILY ORAL 02/16/2014 Oral Tablet 12:25 Medications Administered During Visit Unknown or Not Available. Encounters Encounter Diagnosis Diagnosis Code Start Date SCREENING NOS V289 08/04/2014 Social History Smoking Status Code Start Date End Date Never smoker [id number] Patient Decision Aids Unknown or Not Available. Discharge Instructions You were admitted to [facility] on 08/04/2014 with a principal diagnosis of SCREENING NOS. You were discharged from [facility] on 08/04/2014. Should you have any questions prior to discharge, please contact a member of your healthcare team. If you have left the hospital and have any questions, please contact your primary care physician. Chief Complaint and Reason For Visit Unknown or Not Available. Function Status Unknown or Not Available. Plan of Care Diagnostic Test Pending Plan of Care Pending Diagnostic Test CULTURE GROUP B, [LOINC: 582-7], 08/04/2014 Referral/Transition of Care Unknown or Not Available.
--- OUTSIDE RECORDS SUMMARY | 2016-06-30 20:06 | XMS REPORT | CCD ---
:1995 Author Name SHEREEN MARINELLI Address [address] [facility] Unavailable [place], [place] [phone] Care Team Providers Name Role Phone SOHEILA HERMAN Attending Physician Unavailable Vital Signs Unknown. Allergies Allergy Code Allergy Type Reaction Status No Known Allergies 0 No known allergies Active Procedures Unknown. History of Immunizations Unknown. Problems Problem Code Start Date Resolved Date Status BRONCHITIS 04861546 02/01/2011 Active ABDOMINAL PAIN 96640299 09/23/2011 Active LIGHT CIGARETTE SMOKER (1-9 CIGS/DAY) 702266779 09/23/2011 Active CHEST PAIN, NON-CARDIAC 320963956 10/22/2011 Active DEPRESSION 24131616 10/22/2011 Active OTITIS MEDIA 96363783 02/08/2012 Active POST TERM , DELIVERED WITH OR 887868932 08/14/2012 Active WITHOUT MENTION OF ANTEPARTUM CONDITION IMMEDIATE HEMORRHAGE, 67679347 08/23/2012 Active URINARY TRACT INFECTION 68796277 08/23/2012 Active Personal history of urinary calculi 534683639 Active Results CBC Test Name Code Test Result Test Units Test Date/Time WBC 6690-2 14.4000 K/uL 07/01/2013 11:45 RBC 789-8 3.8200 M/uL 07/01/2013 11:45 HEMOGLOBIN 718-7 12.0000 g/dL 07/01/2013 11:45 HEMATOCRIT 35.1000 % 07/01/2013 11:45 MCV 91.9000 fL 07/01/2013 11:45 MCH 31.4000 PG 07/01/2013 11:45 MCHC 34.2000 G/DL 07/01/2013 11:45 RDW-SD 42.0000 FL 07/01/2013 11:45 RDW-CV 12.8000 % 07/01/2013 11:45 PLATELETS 348.0000 K/UL 07/01/2013 11:45 MPV 10.1000 FL 07/01/2013 11:45 %GRAN 73.2000 % 07/01/2013 11:45 %LYMPH 19.3000 % 07/01/2013 11:45 %MONO 6.2000 % 07/01/2013 11:45 %EOS 1.1000 % 07/01/2013 11:45 %BASO 0.2000 % 07/01/2013 11:45 #GRAN 10.5400 K/UL 07/01/2013 11:45 #LYMPH 2.7800 K/UL 07/01/2013 11:45 #MONO 0.9000 K/UL 07/01/2013 11:45 #EOS 0.1600 K/UL 07/01/2013 11:45 #BASO 0.0300 K/UL 07/01/2013 11:45 SLIDE REVIEWED? NOT INDICATED N/A 07/01/2013 11:45 MANUAL DIFF NOT INDICATED N/A 07/01/2013 11:45 BB RHOGAM Test Name Code Test Result Test Units Test Date/Time LOT # [id number] N/A 07/01/2013 11:45 EXPIRATION 08/01/2015 N/A 07/01/2013 11:45 BB TYPE AND SCREEN Test Name Code Test Result Test Units Test Date/Time ABO/RH A NEGATIVE N/A 07/01/2013 11:45 ANTIBODY SCRN NEGATIVE N/A 07/01/2013 11:45 GLUCOSE DANETTE 1 HR SCREEN Test Name Code Test Result Test Units Test Date/Time GLUCOSE DANETTE RANDOM 94.0000 MG/DL 07/01/2013 12:44 RAPID URINE DRUG SCREEN Test Name Code Test Result Test Units Test Date/Time CANNABINOIDS (THC) NEGATIVE N/A 07/01/2013 12:51 OPIATES NEGATIVE N/A 07/01/2013 12:51 AMPHETAMINES NEGATIVE N/A 07/01/2013 12:51 COCAINE NEGATIVE N/A 07/01/2013 12:51 TRICYCLIC ANTIDEPRES NEGATIVE N/A 07/01/2013 12:51 BARBITURATES NEGATIVE N/A 07/01/2013 12:51 METHADONE NEGATIVE N/A 07/01/2013 12:51 BENZODIAZEPINES NEGATIVE N/A 07/01/2013 12:51 PROPOXYPHENE NEGATIVE N/A 07/01/2013 12:51 METHAMPHETAMINE NEGATIVE N/A 07/01/2013 12:51 Medications Medication Code Dose Units Frequency Route Modification Start Stop Date/Time Date/Time Oral 202275 1 EACH Daily ORAL 08/16/2012 Tablet 12:47 Medications Administered Unknown. Encounters Encounter Diagnosis Diagnosis Code Start Date OTHER SPECIFIED SCREENING V2889 07/01/2013 Social History Smoking Status Code Start Date End Date Never smoker [id number] Patient Decision Aids Unknown. Discharge Instructions You were admitted to [facility] on 07/01/2013 with a principle diagnosis of OTHER SPECIFIED SCREENING. You were discharged from [facility] on 07/01/2013. Should you have any questions prior to discharge, please contact a member of your healthcare team. If you have left the hospital and have any questions, please contact your primary care physician. Chief Complaint and Reason For Visit Unknown. Function Status Unknown. Plan of Care Unknown. Referral/Transition of Care Unknown.
--- OUTSIDE RECORDS SUMMARY | 2016-06-30 20:06 | XMS REPORT | CCD ---
:1995 Author Name NIKUNJNISHI ALONSO Mc Address [address] [facility] Unavailable [place], [place] [phone] Care Team Providers Name Role Phone EUGENIO ALANIS MD Attending Physician Unavailable EUGENIO ALANIS MD Er Physician 1 Unavailable DANI Garcia Registered Nurse Unavailable Vital Signs Vital Sign Value Unit Weight Measured 133 lbs Height 63 in BMI (Body Mass Index) 23.56 kg/m^2 BSA (Body Surface Area) 1.64 m^2 Allergies Allergy Code Allergy Type Reaction Status No Known Allergies 0 No known allergies Active Procedures Unknown. History of Immunizations Unknown. Problems Problem Code Start Date Resolved Date Status BRONCHITIS 47221730 02/01/2011 Active ABDOMINAL PAIN 62314432 09/23/2011 Active LIGHT CIGARETTE SMOKER (1-9 CIGS/DAY) 606830254 09/23/2011 Active CHEST PAIN, NON-CARDIAC 744672876 10/22/2011 Active DEPRESSION 85968107 10/22/2011 Active OTITIS MEDIA 33060053 02/08/2012 Active POST TERM , DELIVERED WITH OR 726255215 08/14/2012 Active WITHOUT MENTION OF ANTEPARTUM CONDITION IMMEDIATE HEMORRHAGE, 73791123 08/23/2012 Active URINARY TRACT INFECTION 15659157 08/23/2012 Active Personal history of urinary calculi 765717201 Active Results UA W/MICROSCOPIC EXAM Test Name Code Test Result Test Units Test Date/Time COLOR UR DK YELLOW N/A 04/25/2013 15:30 CLARITY UR CLEAR N/A 04/25/2013 15:30 SP GRAV UR 1.020 N/A 04/25/2013 15:30 PH UR 6.5 N/A 04/25/2013 15:30 PROTEIN UR 2+ N/A 04/25/2013 15:30 GLUCOSE UR NEGATIVE N/A 04/25/2013 15:30 KETONE UR 2+ N/A 04/25/2013 15:30 BILIRUBIN UR 1+ N/A 04/25/2013 15:30 BLOOD UR NEGATIVE N/A 04/25/2013 15:30 LEUK UR NEGATIVE N/A 04/25/2013 15:30 NITRITE UR NEGATIVE N/A 04/25/2013 15:30 MICRO SEE BELOW N/A 04/25/2013 15:30 RBC/hpf 0 N/A 04/25/2013 15:30 WBC/hpf 1-2 N/A 04/25/2013 15:30 EPI UR 5-10 N/A 04/25/2013 15:30 BACTERIA UR MODERATE N/A 04/25/2013 15:30 MUCOUS FEW/LPF N/A 04/25/2013 15:30 CAST NONE SEE N/A 04/25/2013 15:30 CRYSTALS NONE SEE N/A 04/25/2013 15:30 CULTURE? YES N/A 04/25/2013 15:30 Medications Medication Code Dose Units Frequency Route Modification Start Stop Date/Time Date/Time Oral 531263 1 EACH Daily ORAL 08/16/2012 Tablet 12:47 Medications Administered Unknown. Encounters Encounter Diagnosis Diagnosis Code Start Date HEM EARLY PREG-ANTEPART 23184 04/25/2013 Social History Smoking Status Code Start Date End Date Former smoker [id number] Patient Decision Aids Unknown. Instructions You were admitted to [facility] on 04/25/2013 with a principle diagnosis of HEM EARLY PREG-ANTEPART. You were discharged from [facility] on 04/25/2013. Should you have any questions prior to discharge, please contact a member of your healthcare team. If you have left the hospital and have any questions, please contact your primary care physician. Chief Complaint and Reason For Visit Chief Complaint Date of Onset BLOOD IN URINE PREG Function Status Unknown. Plan of Care Unknown. Referral/Transition of Care Unknown.
--- OUTSIDE RECORDS SUMMARY | 2016-06-30 20:06 | XMS REPORT | CCD ---
:1995 Author Name GONSALO GALLOWAY Address [address] [facility] Unavailable [place], [place] [phone] Care Team Providers Name Role Phone SOHEILA HERMAN Attending Physician Unavailable Vital Signs Vital Sign Value Unit Date/Time Recent/Initial? BP Systolic 106 mmHg 08/18/2014 00:02 Initial VS BP Diastolic 66 mmHg 08/18/2014 00:02 Initial VS Respiratory Rate 20 bpm 08/18/2014 00:02 Initial VS Heart Rate 84 bpm 08/18/2014 00:02 Initial VS O2 % BldC Oximetry 95 % 08/18/2014 00:02 Initial VS Body Temperature 97.3 degrees 08/18/2014 00:02 Initial VS Weight Measured 140 lbs 08/18/2014 00:36 Initial VS Height 64 in 08/18/2014 00:36 Initial VS BMI (Body Mass Index) 24.03 kg/m^2 08/18/2014 00:36 Initial VS BSA (Body Surface Area) 1.69 m^2 08/18/2014 00:36 Initial VS Allergies Allergy Code Allergy Type Reaction Status TRAMADOL 63612 Drug allergy HIVES Active Procedures Unknown or [...] Tdap 115 09/09/2013 Tdap 115 06/23/2014 Novel [id number] 127 04/27/2009 Influenza, seasonal, injectable 141 01/14/2014 no vaccine administered 998 1993 Problems Problem Code Start Date Resolved Date Status BRONCHITIS 77096542 02/01/2011 Active ABDOMINAL PAIN 56102824 09/23/2011 Active LIGHT CIGARETTE SMOKER (1-9 CIGS/DAY) 379349050 09/23/2011 Active CHEST PAIN, NON-CARDIAC 196128722 10/22/2011 Active DEPRESSION 35074143 10/22/2011 Active OTITIS MEDIA 14212860 02/08/2012 Active POST TERM , DELIVERED WITH OR 152533228 08/14/2012 Active WITHOUT MENTION OF ANTEPARTUM CONDITION IMMEDIATE HEMORRHAGE, 53949104 08/23/2012 Active URINARY TRACT INFECTION 75701498 08/23/2012 Active Personal history of urinary calculi 735681992 Active Normal delivery 35280465 09/07/2013 Active Results PLACENTAL ALPHA MICROGLOBULIN-1 - Collect Date/Time: 08/18/2014 00:35 Test Name Code Test Result Test Units Test Ref Range ROM TEST NEGATIVE N/A Active Medications Medication Code Dose Units Frequency Route Modification Start Date/Time Formula Oral 310253 1 EACH DAILY ORAL 02/16/2014 12:25 Tablet Medications Administered During Visit Unknown or Not Available. Encounters Encounter Diagnosis Diagnosis Code Start Date THREAT LABOR NEC-ANTEPAR 54898 08/18/2014 Social History Smoking Status Code Start Date End Date Never smoker [phone] Patient Decision Aids Unknown or Not Available. Discharge Instructions You were admitted to [facility] on 08/18/2014 with a principal diagnosis of THREAT LABOR NEC-ANTEPAR. You were discharged from [facility] on 08/18/2014. Should you have any questions prior to [...]
--- OUTSIDE RECORDS SUMMARY | 2016-06-30 20:06 | XMS REPORT | CCD ---
:1995 Author Name GONSALO GALLOWAY Address [address] [facility] Unavailable [place], [place] [phone] Care Team Providers Name Role Phone RUSLAN ROBBINS Attending Physician Unavailable Vital Signs Vital Sign Value Unit Date/Time Recent/Initial? Weight Measured 174 lbs 07/29/2014 19:28 Initial VS Height 63 in 07/29/2014 19:28 Initial VS BMI (Body Mass Index) 30.82 kg/m^2 07/29/2014 19:28 Initial VS BSA (Body Surface Area) 1.87 m^2 07/29/2014 19:28 Initial VS Weight Measured 174 lbs 07/29/2014 19:53 Most Recent VS Height 63 in 07/29/2014 19:53 Most Recent VS BMI (Body Mass Index) 30.82 kg/m^2 07/29/2014 19:53 Most Recent VS BSA (Body Surface Area) 1.87 m^2 07/29/2014 19:53 Most Recent VS BP Systolic 107 mmHg 07/29/2014 20:00 Initial VS BP Diastolic 65 mmHg 07/29/2014 20:00 Initial VS Respiratory Rate 20 bpm 07/29/2014 20:00 Initial VS Heart Rate 105 bpm 07/29/2014 20:00 Initial VS O2 % BldC Oximetry 95 % 07/29/2014 20:00 Initial VS Body Temperature 98 degrees 07/29/2014 20:00 Initial VS Allergies Allergy Code Allergy Type Reaction Status TRAMADOL 26217 Drug allergy HIVES Active Procedures Unknown or Not Available. History of Immunizations Immunization Code Date OPV 1993 OPV 1993 OPV 1993 OPV 09/21/1997 MMR 03 01/15/1995 MMR 09/21/1997 Hib, [...] Tdap 115 09/09/2013 Tdap 115 06/23/2014 Novel [id number] 127 04/27/2009 Influenza, seasonal, injectable 141 01/14/2014 no vaccine administered 998 1993 Problems Problem Code Start Date Resolved Date Status BRONCHITIS 59063585 02/01/2011 Active ABDOMINAL PAIN 84047189 09/23/2011 Active LIGHT CIGARETTE SMOKER (1-9 CIGS/DAY) 061182149 09/23/2011 Active CHEST PAIN, NON-CARDIAC 937983753 10/22/2011 Active DEPRESSION 85562327 10/22/2011 Active OTITIS MEDIA 31678572 02/08/2012 Active POST TERM , DELIVERED WITH OR 362032907 08/14/2012 Active WITHOUT MENTION OF ANTEPARTUM CONDITION IMMEDIATE HEMORRHAGE, 04837781 08/23/2012 Active URINARY TRACT INFECTION 58671591 08/23/2012 Active Personal history of urinary calculi 512077140 Active Normal delivery 79940895 09/07/2013 Active Results RAPID URINE DRUG SCREEN - Collect Date/Time: 07/29/2014 20:25 Test Name Code Test Result Test Units Test Ref Range CANNABINOIDS (THC) NEGATIVE N/A NORMAL:Negative OPIATES NEGATIVE N/A NORMAL:Negative AMPHETAMINES NEGATIVE N/A NORMAL:Negative COCAINE NEGATIVE N/A NORMAL:Negative TRICYCLIC ANTIDEPRES NEGATIVE N/A NORMAL:Negative BARBITURATES NEGATIVE N/A NORMAL:Negative METHADONE NEGATIVE N/A NORMAL:Negative BENZODIAZEPINES NEGATIVE N/A NORMAL:Negative PROPOXYPHENE NEGATIVE N/A NORMAL:Negative METHAMPHETAMINE NEGATIVE N/A NORMAL:Negative Active Medications Medication Code Dose Units Frequency Route Modification Start Date/Time LACTATED RINGERS 519481 5253 ML 200 ML/HR IV FLUID 07/29/2014 21:34 IV TACOS : 1000ML Medications Administered During Visit Medication Dose Units Frequency Route Date/Time of Last Dose LACTATED RINGERS IV TACOS : 1000ML 1000 ML X1 IV FLUID 07/29/2014 21:29 Encounters Encounter Diagnosis Diagnosis Code Start Date THRT CRYSTAL LABOR-ANTEPART 58256 07/29/2014 Social History Smoking Status Code Start Date End Date Never smoker [phone] Patient Decision Aids Unknown or Not Available. Discharge Instructions You were admitted to [facility] on 07/29/2014 with a principal diagnosis of THRT CRYSTAL LABOR-ANTEPART. You were discharged from [facility] on 07/29/2014. Should you have any questions prior to discharge, please contact a member of your healthcare team. If you have left the hospital and have any questions, please contact your primary care physician. Chief Complaint and Reason For Visit Chief Complaint Date of Onset 35 WEEKS ALONG Function Status Unknown or Not Available. Plan of Care Unknown or Not Available. Referral/Transition of Care Unknown or Not Available.
--- OUTSIDE RECORDS SUMMARY | 2016-06-30 20:06 | XMS REPORT | CCD ---
:1993 Author Name GONSALO GALLOWAY Address [address] Unavailable [place], [place] [phone] Care Team Providers Name Role Phone MIKE SOUSA Attending Physician Unavailable Vital Signs Vital Sign Value Unit Date/Time Recent/Initial? BP Systolic 109 mmHg 08/01/2014 19:47 Initial VS BP Diastolic 63 mmHg 08/01/2014 19:47 Initial VS Respiratory Rate 18 bpm 08/01/2014 19:47 Initial VS Heart Rate 104 bpm 08/01/2014 19:47 Initial VS Body Temperature 96.8 degrees 08/01/2014 19:47 Initial VS Weight Measured 177.5 lbs 08/01/2014 20:22 Initial VS Height 62 in 08/01/2014 20:22 Initial VS BMI (Body Mass Index) 32.46 kg/m^2 08/01/2014 20:22 Initial VS BSA (Body Surface Area) 1.88 m^2 08/01/2014 20:22 Initial VS Allergies Allergy Code Allergy Type Reaction Status TRAMADOL 48831 Drug allergy HIVES Active Procedures Unknown or [...] Tdap 115 09/09/2013 Tdap 115 06/23/2014 Novel [id number]-[id number] 127 04/27/2009 Influenza, seasonal, injectable 141 01/14/2014 no vaccine administered 998 1993 Problems Problem Code Start Date Resolved Date Status BRONCHITIS 58980143 02/01/2011 Active ABDOMINAL PAIN 20280925 09/23/2011 Active LIGHT CIGARETTE SMOKER (1-9 CIGS/DAY) 480627404 09/23/2011 Active CHEST PAIN, NON-CARDIAC 825755617 10/22/2011 Active DEPRESSION 74641043 10/22/2011 Active OTITIS MEDIA 59911016 02/08/2012 Active POST TERM , DELIVERED WITH OR 292054960 08/14/2012 Active WITHOUT MENTION OF ANTEPARTUM CONDITION IMMEDIATE HEMORRHAGE, 89324574 08/23/2012 Active URINARY TRACT INFECTION 35659783 08/23/2012 Active Personal history of urinary calculi 634523653 Active Normal delivery 60776162 09/07/2013 Active Results Unknown or Not Available. Active Medications Medication Code Dose Units Frequency Route Modification Start Date/Time Latuda 20MG Oral 6540252 20 MILLIGRAMS DAILY ORAL 08/01/2014 Tablet 22:39 Macrodantin 100MG 450396 100 MILLIGRAMS DAILY ORAL 08/01/2014 Oral Capsule 22:39 Formula 682154 1 EACH DAILY ORAL 02/16/2014 Oral Tablet 12:25 Medications Administered During Visit Unknown or Not Available. Encounters Encounter Diagnosis Diagnosis Code Start Date THRT CRYSTAL LABOR-ANTEPART 58664 08/01/2014 Social History Smoking Status Code Start Date End Date Never smoker [phone] Patient Decision Aids Unknown or Not Available. Discharge Instructions You were admitted to [facility] on 08/01/2014 with a principal diagnosis of THRT CRYSTAL LABOR-ANTEPART. You were discharged from [facility] on 08/01/2014. Should you have any questions prior to discharge, please contact a member of your healthcare team. If you have left the hospital and have any questions, please contact your primary care physician. Chief Complaint and Reason For Visit Chief Complaint Date of Onset OB TRIAGE Function Status Unknown or Not Available. Plan of Care Unknown or Not Available. Referral/Transition of Care Unknown or Not Available.
--- OUTSIDE RECORDS SUMMARY | 2016-06-30 20:06 | XMS REPORT | CCD ---
:1995 Author Name NISHI OROPEZA Mc Address [address] [facility] Unavailable [place], [place] [phone] Care Team Providers Name Role Phone NOEMÍ ORELLANA Attending Physician Unavailable NOEMÍ ORELLANA Er Physician 1 Unavailable Unavailable Registered Nurse Unavailable Vital Signs Vital Sign Value Unit Date/Time Recent/Initial? Weight Measured 153 lbs 10/31/2014 16:12 Initial VS Height 62 in 10/31/2014 16:12 Initial VS BMI (Body Mass Index) 27.98 kg/m^2 10/31/2014 16:12 Initial VS BSA (Body Surface Area) 1.74 m^2 10/31/2014 16:12 Initial VS BP Systolic 103 mmHg 10/31/2014 16:12 Initial VS BP Diastolic 69 mmHg 10/31/2014 16:12 Initial VS Allergies Allergy Code Allergy Type Reaction Status MELOXICAM 66569 Drug allergy RASH Active TRAMADOL 60772 Drug allergy HIVES Active TORADOL 74784 Drug allergy ITCHING Active Procedures Procedure Code Procedure Type Date PELVIS 257209909 SNOMED CT 10/31/2014 HIP 2 [address] [place] 47[address] 10/31/2014 History of Immunizations Immunization Code Date OPV [...] Tdap 115 09/09/2013 Tdap 115 06/23/2014 Novel vfcurpfyj-C0Z1-92 127 04/27/2009 Influenza, seasonal, injectable 141 01/14/2014 no vaccine administered 998 1993 Problems Problem Code Start Date Resolved Date Status LIGHT CIGARETTE SMOKER (1-9 CIGS/DAY) 482853125 09/23/2011 Active Spontaneous vaginal delivery 49775916 08/25/2014 Active Results Unknown or Not Available. Active Medications Medication Code Dose Units Frequency Route Modification Start Date/Time Ferrous Sulfate 653937 325 MILLIGRAMS TWICE A DAY BY MOUTH 08/27/2014 325MG Oral 12:06 Tablet, Enteric Coated Prescription Detail TAKE 325 MILLIGRAMS BY MOUTH TWICE A DAY Medications Administered During Visit Unknown or Not Available. Encounters Encounter Diagnosis Diagnosis Code Start Date BUTTOCK CONTUSION 30825 10/31/2014 Social History Smoking Status Code Start Date End Date Never smoker [phone] Patient Decision Aids Unknown or Not Available. Discharge Instructions You were admitted to [facility] on 10/31/2014 with a principal diagnosis of BUTTOCK CONTUSION. You were discharged from [facility] on 10/31/2014. Should you have any questions prior to discharge, please contact a member of your healthcare team. If you have left the hospital and have any questions, please contact your primary care physician. Chief Complaint and Reason For Visit Chief Complaint Date of Onset HIP GRINDING Function Status Unknown or Not Available. Plan of Care Unknown or Not Available. Referral/Transition of Care Unknown or Not Available.
--- OUTSIDE RECORDS SUMMARY | 2016-06-30 20:06 | XMS REPORT | CCD ---
:1995 Author Name SHEREEN MARINELLI Address [address] [facility] Unavailable [place], [place] [phone] Care Team Providers Name Role Phone TRESSA JONES Attending Physician Unavailable F.[email or web address] Registered Nurse Unavailable Vital Signs Vital Sign Value Unit Date/Time Recent/Initial? BP Systolic 102 mmHg 07/12/2013 16:07 Initial VS BP Diastolic 61 mmHg 07/12/2013 16:07 Initial VS Respiratory Rate 18 bpm 07/12/2013 16:07 Initial VS Heart Rate 100 bpm 07/12/2013 16:07 Initial VS Body Temperature 96 degrees 07/12/2013 16:07 Initial VS Weight Measured 142.37 lbs 07/12/2013 17:34 Initial VS Height 63 in 07/12/2013 17:34 Initial VS BMI (Body Mass Index) 25.22 kg/m^2 07/12/2013 17:34 Initial VS BSA (Body Surface Area) 1.69 m^2 07/12/2013 17:34 Initial VS Allergies Allergy Code Allergy Type Reaction Status No Known Allergies 0 No known allergies Active Procedures Unknown. History of Immunizations Unknown. Problems Problem Code Start Date Resolved Date Status BRONCHITIS 91210745 02/01/2011 Active ABDOMINAL PAIN 74930594 09/23/2011 Active LIGHT CIGARETTE SMOKER (1-9 CIGS/DAY) 709286165 09/23/2011 Active CHEST PAIN, NON-CARDIAC 747220428 10/22/2011 Active DEPRESSION 42937412 10/22/2011 Active OTITIS MEDIA 53547429 02/08/2012 Active POST TERM , DELIVERED WITH OR 016044437 08/14/2012 Active WITHOUT MENTION OF ANTEPARTUM CONDITION IMMEDIATE HEMORRHAGE, 02325979 08/23/2012 Active URINARY TRACT INFECTION 73842969 08/23/2012 Active Personal history of urinary calculi 144389459 Active Results Unknown. Medications Medication Code Dose Units Frequency Route Modification Start Stop Date/Time Date/Time Oral 464665 1 EACH Daily ORAL 08/16/2012 Tablet 12:47 Medications Administered Medication Dose Units Frequency Route Date/Time of Last Dose ONDANSETRON (ZOFRAN) ODT TAB : 4MG 4 MG X1 ORAL 07/12/2013 17:48 Encounters Encounter Diagnosis Diagnosis Code Start Date THRT CRYSTAL LABOR-ANTEPART 98079 07/12/2013 Social History Smoking Status Code Start Date End Date Never smoker 453083245 Patient Decision Aids Unknown. Discharge Instructions You were admitted to [facility] on 07/12/2013 with a principle diagnosis of THRT CRYSTAL LABOR-ANTEPART. You were discharged from [facility] on 07/12/2013. Should you have any questions prior to discharge, please contact a member of your healthcare team. If you have left the hospital and have any questions, please contact your primary care physician. Chief Complaint and Reason For Visit Unknown. Function Status Unknown. Plan of Care Unknown. Referral/Transition of Care Unknown.
--- OUTSIDE RECORDS SUMMARY | 2016-06-30 20:06 | XMS REPORT | CCD ---
:1995 Author Name SHEREEN MARINELLI Address [address] [facility] Unavailable [place], [place] [id number] Care Team Providers Name Role Phone SOHEILA SERVIN Attending Physician Unavailable ANIL CASH Er Physician 1 Unavailable SALVADOR Ferrer Registered Nurse Unavailable Vital Signs Vital Sign Value Unit Date/Time Recent/Initial? BP Systolic 104 mmHg 08/17/2013 16:20 Initial VS BP Diastolic 58 mmHg 08/17/2013 16:20 Initial VS Respiratory Rate 18 bpm 08/17/2013 16:20 Initial VS Heart Rate 81 bpm 08/17/2013 16:20 Initial VS Body Temperature 97.5 degrees 08/17/2013 16:20 Initial VS Allergies Allergy Code Allergy Type [...] formulation 107 09/21/1997 Tdap 115 09/22/2007 Novel [id number]-[id number] 127 04/27/2009 no vaccine administered 998 1993 Problems Problem Code Start Date Resolved Date Status BRONCHITIS 61279706 02/01/2011 Active ABDOMINAL PAIN 83360033 09/23/2011 Active LIGHT CIGARETTE SMOKER (1-9 CIGS/DAY) 677355854 09/23/2011 Active CHEST PAIN, NON-CARDIAC 097147676 10/22/2011 Active DEPRESSION 98880080 10/22/2011 Active OTITIS MEDIA 97600079 02/08/2012 Active POST TERM , DELIVERED WITH OR 617441000 08/14/2012 Active WITHOUT MENTION OF ANTEPARTUM CONDITION IMMEDIATE HEMORRHAGE, 94721628 08/23/2012 Active URINARY TRACT INFECTION 68008654 08/23/2012 Active Personal history of urinary calculi 501863933 Active Results UA W/MICROSCOPIC EXAM Test Name Code Test Result Test Units Test Date/Time COLOR UR LT YELLOW N/A 08/17/2013 08:52 CLARITY UR SL CLOUDY N/A 08/17/2013 08:52 SP GRAV UR 1.015 N/A 08/17/2013 08:52 PH UR 8.0 N/A 08/17/2013 08:52 PROTEIN UR NEGATIVE N/A 08/17/2013 08:52 GLUCOSE UR NEGATIVE N/A 08/17/2013 08:52 KETONE UR NEGATIVE N/A 08/17/2013 08:52 BILIRUBIN UR NEGATIVE N/A 08/17/2013 08:52 BLOOD UR NEGATIVE N/A 08/17/2013 08:52 LEUK UR 1+ N/A 08/17/2013 08:52 NITRITE UR NEGATIVE N/A 08/17/2013 08:52 MICRO SEE BELOW N/A 08/17/2013 08:52 RBC/hpf 2 N/A 08/17/2013 08:52 WBC/hpf 2 N/A 08/17/2013 08:52 EPI UR 30-40 N/A 08/17/2013 08:52 BACTERIA UR MODERATE N/A 08/17/2013 08:52 MUCOUS NONE SEE N/A 08/17/2013 08:52 CAST NONE SEE N/A 08/17/2013 08:52 CRYSTALS SEE BELO N/A 08/17/2013 08:52 CULTURE? YES N/A 08/17/2013 08:52 Medications Medication Code Dose Units Frequency Route Modification Start Stop Date/Time Date/Time Oral 180763 1 EACH Daily ORAL 08/16/2012 Tablet 12:47 Medications Administered Unknown or Not Available. Encounters Encounter Diagnosis Diagnosis Code Start Date INFECTION-ANTEPARTUM 55597 08/17/2013 Social History Smoking Status Code Start Date End Date Never smoker [id number] Patient Decision Aids Unknown or Not Available. Discharge Instructions You were admitted to [facility] on 08/17/2013 with a principal diagnosis of INFECTION-ANTEPARTUM. You were discharged from [facility] on 08/17/2013. Should you have any questions prior to discharge, please contact a member of your healthcare team. If you have left the hospital and have any questions, please contact your primary care physician.Diet:Regular,DRINK LOTS OF FLUIDSMedication Instructions:Continue vitamins,PYRIDIUM 100MG THREE TIMES A DAY X 3 DAYS, QHSFE852 MG TWO TIMES A DAY X 7 DAYS.Physician follow up:Dr Servin's office: [phone], Followup appt on:_SEP 20, 2013 at .For undelivered patients, call MD if:Severe headaches, blurred vision, Dizziness.Increased swelling that doesn't go away, Vaginal bleeding.Water breaks or you have leaking fluid, Contractions in a regular pattern.You do not feel your baby move in 8 hrs, Uncontrolled urge to push.Change in condition that concerns you, Any questions about your condition.Patient condition at discharge:Stable, Not in labor.Discharge via:Ambulatory.Accompanied by:Significant other.Nurses Note:DISCHARGE INSTRUCTIONS REVIEWED WITH PT, UNDERSTANDING VOICED. Chief Complaint and Reason For Visit Chief Complaint Date of Onset NAUSEA LEFT HIP PAIN Function Status Unknown or Not Available. Plan of Care Unknown or Not Available. Referral/Transition of Care Unknown or Not Available.
--- OUTSIDE RECORDS SUMMARY | 2016-06-30 20:06 | XMS REPORT | CCD ---
:1995 Author Name SHEREEN MARINELLI Address [address] [facility] Unavailable [place], [place] [id number] Care Team Providers Name Role Phone SOHEILA HERMAN Attending Physician Unavailable Vital Signs Vital Sign Value Unit Date/Time Recent/Initial? BP Systolic 103 mmHg 07/07/2013 18:19 Initial VS BP Diastolic 61 mmHg 07/07/2013 18:19 Initial VS Respiratory Rate 16 bpm 07/07/2013 18:19 Initial VS Heart Rate 81 bpm 07/07/2013 18:19 Initial VS Body Temperature 98 degrees 07/07/2013 18:19 Initial VS BP Systolic 106 mmHg 07/07/2013 19:01 Most Recent VS BP Diastolic 56 mmHg 07/07/2013 19:01 Most Recent VS Respiratory Rate 18 bpm 07/07/2013 19:01 Most Recent VS Heart Rate 86 bpm 07/07/2013 19:01 Most Recent VS Weight Measured 142.8 lbs 07/07/2013 19:12 Initial VS Height 64 in 07/07/2013 19:12 Initial VS BMI (Body Mass Index) 24.51 kg/m^2 07/07/2013 19:12 Initial VS BSA (Body Surface Area) 1.71 m^2 07/07/2013 19:12 Initial VS Body Temperature 98 degrees 07/07/2013 20:15 Most Recent VS Allergies Allergy Code Allergy Type Reaction Status No Known Allergies 0 No known allergies Active Procedures Unknown. History of Immunizations Unknown. Problems Problem Code Start Date Resolved Date Status BRONCHITIS 03981610 02/01/2011 Active ABDOMINAL PAIN 55010504 09/23/2011 Active LIGHT CIGARETTE SMOKER (1-9 CIGS/DAY) 970582532 09/23/2011 Active CHEST PAIN, NON-CARDIAC 045113694 10/22/2011 Active DEPRESSION 16958765 10/22/2011 Active OTITIS MEDIA 63381638 02/08/2012 Active POST TERM , DELIVERED WITH OR 850207571 08/14/2012 Active WITHOUT MENTION OF ANTEPARTUM CONDITION IMMEDIATE HEMORRHAGE, 14327630 08/23/2012 Active URINARY TRACT INFECTION 79111137 08/23/2012 Active Personal history of urinary calculi 024762637 Active Results CBC Test Name Code Test Result Test Units Test Date/Time WBC 6690-2 15.3000 K/uL 07/07/2013 20:05 RBC 789-8 3.6000 M/uL 07/07/2013 20:05 HEMOGLOBIN 718-7 11.4000 g/dL 07/07/2013 20:05 HEMATOCRIT 33.2000 % 07/07/2013 20:05 MCV 92.2000 fL 07/07/2013 20:05 MCH 31.7000 PG 07/07/2013 20:05 MCHC 34.3000 G/DL 07/07/2013 20:05 RDW-SD 41.8000 FL 07/07/2013 20:05 RDW-CV 12.8000 % 07/07/2013 20:05 PLATELETS 357.0000 K/UL 07/07/2013 20:05 MPV 10.3000 FL 07/07/2013 20:05 %GRAN 68.8000 % 07/07/2013 20:05 %LYMPH 21.3000 % 07/07/2013 20:05 %MONO 8.8000 % 07/07/2013 20:05 %EOS 0.8000 % 07/07/2013 20:05 %BASO 0.3000 % 07/07/2013 20:05 #GRAN 10.5300 K/UL 07/07/2013 20:05 #LYMPH 3.2600 K/UL 07/07/2013 20:05 #MONO 1.3500 K/UL 07/07/2013 20:05 #EOS 0.1200 K/UL 07/07/2013 20:05 #BASO 0.0400 K/UL 07/07/2013 20:05 SLIDE REVIEWED? NOT INDICATED N/A 07/07/2013 20:05 MANUAL DIFF NOT INDICATED N/A 07/07/2013 20:05 COMPREHENSIVE METABOLIC PANEL Test Name Code Test Result Test Units Test Date/Time GLUCOSE 80.0000 mg/dL 07/07/2013 20:05 SODIUM 136.0000 mmol/L 07/07/2013 20:05 POTASSIUM 3.7000 mmol/L 07/07/2013 20:05 CHLORIDE 104.0000 mmol/L 07/07/2013 20:05 CO2 22.0000 mmol/L 07/07/2013 20:05 BUN 8.0000 mg/dL 07/07/2013 20:05 CREATININE 0.4000 mg/dL 07/07/2013 20:05 BUN/CREAT 20.0000 07/07/2013 20:05 CALCIUM 8.8000 mg/dL 07/07/2013 20:05 TOTAL BILI 0.1000 mg/dL 07/07/2013 20:05 TOTAL PROTEIN 6.7000 g/dL 07/07/2013 20:05 ALBUMIN 2.7000 g/dL 07/07/2013 20:05 A/G RATIO 0.7000 07/07/2013 20:05 ALKALINE PHOS 116.0000 IU/L 07/07/2013 20:05 AST/SGOT 9.0000 IU/L 07/07/2013 20:05 ALT/SGPT 16.0000 IU/L 07/07/2013 20:05 ANION GAP 14.2000 mmol/L 07/07/2013 20:05 AGE 20.0000 YEARS 07/07/2013 20:05 GFR 216.2900 ml/min 07/07/2013 20:05 Medications Medication Code Dose Units Frequency Route Modification Start Stop Date/Time Date/Time LACTATED 529108 3899 ML 120 ML/HR IV FLUID 07/07/2013 08/06/2013 RINGERS IV 19:15 19:15 TACOS : 1000ML Oral 764297 1 EACH Daily ORAL 08/16/2012 Tablet 12:47 Medications Administered Medication Dose Units Frequency Route Date/Time of Last Dose LACTATED RINGERS IV TACOS : 1000ML 1000 ML 120 ML/HR IV FLUID 07/07/2013 20: 00 Encounters Encounter Diagnosis Diagnosis Code Start Date PREG COMPL NEC-ANTEPART 30958 07/07/2013 Social History Smoking Status Code Start Date End Date Never smoker [id number] Patient Decision Aids Unknown. Discharge Instructions You were admitted to [facility] on 07/07/2013 with a principle diagnosis of PREG COMPL NEC-ANTEPART. You were discharged from [facility] on 07/07/2013. Should you have any questions prior to discharge, please contact a member of your healthcare team. If you have left the hospital and have any questions, please contact your primary care physician. Chief Complaint and Reason For Visit Unknown. Function Status Unknown. Plan of Care Unknown. Referral/Transition of Care Unknown.
--- OUTSIDE RECORDS SUMMARY | 2016-06-30 20:07 | XMS REPORT | CCD ---
:1995 Author Name GONSALO GALLOWAY Address [address] Unavailable [place], [place] [phone] Care Team Providers Name Role Phone MIKE SOUSA Attending Physician Unavailable Vital Signs Vital Sign Value Unit Date/Time Recent/Initial? O2 % BldC Oximetry 95 % 08/18/2014 00:02 Initial VS Weight Measured 179 lbs 08/22/2014 09:50 Initial VS Height 62 in 08/22/2014 09:50 Initial VS BMI (Body Mass Index) 32.74 kg/m^2 08/22/2014 09:50 Initial VS BSA (Body Surface Area) 1.88 m^2 08/22/2014 09:50 Initial VS BP Systolic 124 mmHg 08/22/2014 09:50 Initial VS BP Diastolic 68 mmHg 08/22/2014 09:50 Initial VS Respiratory Rate 18 bpm 08/22/2014 09:50 Initial VS Heart Rate 84 bpm 08/22/2014 09:50 Initial VS O2 % BldC Oximetry 99 % 08/22/2014 09:50 Most Recent VS Body Temperature 97.9 degrees 08/22/2014 09:50 Initial VS Weight Measured 179 lbs 08/22/2014 10:03 Most Recent VS Height 62 in 08/22/2014 10:03 Most Recent VS BMI (Body Mass Index) 32.74 kg/m^2 08/22/2014 10:03 Most Recent VS BSA (Body Surface Area) 1.88 m^2 08/22/2014 10:03 Most Recent VS BP Systolic 112 mmHg 08/22/2014 12:24 Most Recent VS BP Diastolic 61 mmHg 08/22/2014 12:24 Most Recent VS Respiratory Rate 18 bpm 08/22/2014 12:24 Most Recent VS Heart Rate 94 bpm 08/22/2014 12:24 Most Recent VS Body Temperature 97.9 degrees 08/22/2014 12:24 Most Recent VS Allergies Allergy Code Allergy Type Reaction Status TRAMADOL 96985 Drug allergy HIVES Active Procedures Unknown or [...] Tdap 115 09/09/2013 Tdap 115 06/23/2014 Novel [id number]-[id number] 127 04/27/2009 Influenza, seasonal, injectable 141 01/14/2014 no vaccine administered 998 1993 Problems Problem Code Start Date Resolved Date Status BRONCHITIS 00760600 02/01/2011 Active ABDOMINAL PAIN 30710482 09/23/2011 Active LIGHT CIGARETTE SMOKER (1-9 CIGS/DAY) 401940654 09/23/2011 Active CHEST PAIN, NON-CARDIAC 103710380 10/22/2011 Active DEPRESSION 82314691 10/22/2011 Active OTITIS MEDIA 94550243 02/08/2012 Active POST TERM , DELIVERED WITH OR 503507433 08/14/2012 Active WITHOUT MENTION OF ANTEPARTUM CONDITION IMMEDIATE HEMORRHAGE, 89466223 08/23/2012 Active URINARY TRACT INFECTION 58676713 08/23/2012 Active Personal history of urinary calculi 064905970 Active Normal delivery 70807067 09/07/2013 Active Results Unknown or Not Available. Active Medications Medication Code Dose Units Frequency Route Modification Start Date/Time Formula Oral 040130 1 EACH DAILY ORAL 02/16/2014 12:25 Tablet Medications Administered During Visit Unknown or Not Available. Encounters Encounter Diagnosis Diagnosis Code Start Date THREAT LABOR NEC-ANTEPAR 10594 08/22/2014 Social History Smoking Status Code Start Date End Date Never smoker 038018815 Patient Decision Aids Unknown or Not Available. Discharge Instructions You were admitted to [facility] on 08/22/2014 with a principal diagnosis of THREAT LABOR NEC-ANTEPAR. You were discharged from [facility] on 08/22/2014. Should you have any questions prior to discharge, please contact a member of your healthcare team. If you have left the hospital and have any questions, please contact your primary care physician. Chief Complaint and Reason For Visit Chief Complaint Date of Onset CONTRACTIONS Function Status Unknown or Not Available. Plan of Care Unknown or Not Available. Referral/Transition of Care Unknown or Not Available.
--- OUTSIDE RECORDS SUMMARY | 2016-06-30 20:07 | XMS REPORT | CCD ---
:1995 Author Name NISHI OROPEZA Mc Address [address] [facility] Unavailable [place], [place] [id number] Care Team Providers Name Role Phone GEOVANI MISTRY Attending Physician Unavailable GEOVANI MISTRY Er Physician 1 Unavailable MICHAEL Sims Registered Nurse Unavailable Vital Signs Vital Sign Value Unit Date/Time Recent/Initial? Weight Measured 164 lbs 09/16/2014 08:58 Initial VS Height 62 in 09/16/2014 08:58 Initial VS BMI (Body Mass Index) 30 kg/m^2 09/16/2014 08:58 Initial VS BSA (Body Surface Area) 1.8 m^2 09/16/2014 08:58 Initial VS BP Systolic 104 mmHg 09/16/2014 08:58 Initial VS BP Diastolic 70 mmHg 09/16/2014 08:58 Initial VS Allergies Allergy Code Allergy Type Reaction Status TRAMADOL 79711 Drug allergy HIVES Active Procedures Unknown or [...] Tdap 115 09/09/2013 Tdap 115 06/23/2014 Novel kpbcmehmi-H2F8-80 127 04/27/2009 Influenza, seasonal, injectable 141 01/14/2014 no vaccine administered 998 1993 Problems Problem Code Start Date Resolved Date Status LIGHT CIGARETTE SMOKER (1-9 CIGS/DAY) 346027982 09/23/2011 Active Spontaneous vaginal delivery 59254009 08/25/2014 Active Results STREP SCREEN - Collect Date/Time: 09/16/2014 09:46 Test Name Code Test Result Test Units Test Ref Range STREP SCREEN NEGATIVE N/A NORMAL:NEGATIVE Active Medications Unknown or Not Available. Medications Administered During Visit Unknown or Not Available. Encounters Encounter Diagnosis Diagnosis Code Start Date ACUTE URI NOS 4659 09/16/2014 Social History Smoking Status Code Start Date End Date Never smoker [id number] Patient Decision Aids Unknown or Not Available. Discharge Instructions You were admitted to [facility] on 09/16/2014 with a principal diagnosis of ACUTE URI NOS. You were discharged from [facility] on 09/16/2014. Should you have any questions prior to discharge, please contact a member of your healthcare team. If you have left the hospital and have any questions, please contact your primary care physician. Chief Complaint and Reason For Visit Chief Complaint Date of Onset SICK Function Status Unknown or Not Available. Plan of Care Unknown or Not Available. Referral/Transition of Care Unknown or Not Available.
--- OUTSIDE RECORDS SUMMARY | 2016-06-30 20:07 | XMS REPORT | CCD ---
:1995 Author Name GONSALO GALLOWAY Address [address] Unavailable [place], [place] [phone] Care Team Providers Name Role Phone SOHEILA HERMAN Attending Physician Unavailable Vital Signs Vital Sign Value Unit Date/Time Recent/Initial? Weight Measured 177 lbs 08/06/2014 11:53 Initial VS Height 62.5 in 08/06/2014 11:53 Initial VS BMI (Body Mass Index) 31.86 kg/m^2 08/06/2014 11:53 Initial VS BSA (Body Surface Area) 1.88 m^2 08/06/2014 11:53 Initial VS BP Systolic 110 mmHg 08/06/2014 11:53 Initial VS BP Diastolic 67 mmHg 08/06/2014 11:53 Initial VS Respiratory Rate 16 bpm 08/06/2014 11:53 Initial VS Heart Rate 92 bpm 08/06/2014 11:53 Initial VS Body Temperature 98 degrees 08/06/2014 11:53 Initial VS Weight Measured 177 lbs 08/06/2014 12:02 Most Recent VS Height 62.5 in 08/06/2014 12:02 Most Recent VS BMI (Body Mass Index) 31.86 kg/m^2 08/06/2014 12:02 Most Recent VS BSA (Body Surface Area) 1.88 m^2 08/06/2014 12:02 Most Recent VS BP Systolic 110 mmHg 08/06/2014 12:55 Most Recent VS BP Diastolic 60 mmHg 08/06/2014 12:55 Most Recent VS Respiratory Rate 16 bpm 08/06/2014 12:55 Most Recent VS Heart Rate 90 bpm 08/06/2014 12:55 Most Recent VS Body Temperature 97.2 degrees 08/06/2014 12:55 Most Recent VS Allergies Allergy Code Allergy Type Reaction Status TRAMADOL 93488 Drug allergy HIVES Active Procedures Unknown or [...] Tdap 115 09/09/2013 Tdap 115 06/23/2014 Novel [id number]-Q0M8-60 127 04/27/2009 Influenza, seasonal, injectable 141 01/14/2014 no vaccine administered 998 1993 Problems Problem Code Start Date Resolved Date Status BRONCHITIS 76261982 02/01/2011 Active ABDOMINAL PAIN 95911052 09/23/2011 Active LIGHT CIGARETTE SMOKER (1-9 CIGS/DAY) 266473119 09/23/2011 Active CHEST PAIN, NON-CARDIAC 534839553 10/22/2011 Active DEPRESSION 85917734 10/22/2011 Active OTITIS MEDIA 49985128 02/08/2012 Active POST TERM , DELIVERED WITH OR 987274082 08/14/2012 Active WITHOUT MENTION OF ANTEPARTUM CONDITION IMMEDIATE HEMORRHAGE, 28382627 08/23/2012 Active URINARY TRACT INFECTION 36208650 08/23/2012 Active Personal history of urinary calculi 395729839 Active Normal delivery 33296618 09/07/2013 Active Results PLACENTAL ALPHA MICROGLOBULIN-1 - Collect Date/Time: 08/06/2014 12:03 Test Name Code Test Result Test Units Test Ref Range ROM TEST NEGATIVE N/A Active Medications Medication Code Dose Units Frequency Route Modification Start Date/Time Latuda 20MG Oral 9734325 20 MILLIGRAMS DAILY ORAL 08/01/2014 Tablet 22:39 Macrodantin 100MG 566838 100 MILLIGRAMS DAILY ORAL 08/01/2014 Oral Capsule 22:39 Formula 739388 1 EACH DAILY ORAL 02/16/2014 Oral Tablet 12:25 Medications Administered During Visit Unknown or Not Available. Encounters Encounter Diagnosis Diagnosis Code Start Date THRT CRYSTAL LABOR-ANTEPART 66721 08/06/2014 Social History Smoking Status Code Start Date End Date Never smoker 726845089 Patient Decision Aids Unknown or Not Available. Discharge Instructions You were admitted to [facility] on 08/06/2014 with a principal diagnosis of THRT CRYSTAL LABOR-ANTEPART. You were discharged from [facility] on 08/06/2014. Should you have any questions prior to [...]
--- OUTSIDE RECORDS SUMMARY | 2016-06-30 20:07 | XMS REPORT | CCD ---
:1995 Author Name SHEREEN MARINELLI Address [address] [facility] Unavailable [place], [place] [phone] Care Team Providers Name Role Phone SOHEILA HERMAN Attending Physician Unavailable Vital Signs Vital Sign Value Unit Date/Time Recent/Initial? Weight Measured 153 lbs 08/25/2013 14:12 Initial VS Height 62 in 08/25/2013 14:12 Initial VS BMI (Body Mass Index) 27.98 kg/m^2 08/25/2013 14:12 Initial VS BSA (Body Surface Area) 1.74 m^2 08/25/2013 14:12 Initial VS BP Systolic 97 mmHg 08/25/2013 14:12 Initial VS BP Diastolic 61 mmHg 08/25/2013 14:12 Initial VS Respiratory Rate 16 bpm 08/25/2013 14:12 Initial VS Heart Rate 94 bpm 08/25/2013 14:12 Initial VS Body Temperature 96.3 degrees 08/25/2013 14:12 Initial VS BP Systolic 102 mmHg 08/25/2013 14:57 Most Recent VS BP Diastolic 64 mmHg 08/25/2013 14:57 Most Recent VS Respiratory Rate 16 bpm 08/25/2013 14:57 Most Recent VS Heart Rate 80 bpm 08/25/2013 14:57 Most Recent VS Allergies Allergy Code Allergy Type Reaction Status No Known Allergies 0 No known allergies Active Procedures Unknown or Not Available. History of Immunizations Immunization Code Date OPV 1993 OPV 1993 OPV 1993 OPV 02 09/21/1997 MMR 03 01/15/1995 MMR 03 09/21/1997 Hib, unspecified formulation 17 1993 Hib, unspecified formulation 17 01/15/1995 DTP-Hib 1993 DTP-Hib 22 1993 Hep B, unspecified formulation 45 07/06/1998 Hep B, unspecified formulation 45 09/13/1998 Hep B, unspecified formulation 45 02/22/1999 HPV, quadrivalent 62 10/20/2007 DTaP, unspecified formulation 107 01/15/1995 DTaP, unspecified formulation 107 09/21/1997 Tdap 115 09/22/2007 Novel [id number]-[id number] 127 04/27/2009 no vaccine administered 998 1993 Problems Problem Code Start Date Resolved Date Status BRONCHITIS 33752215 02/01/2011 Active ABDOMINAL PAIN 59217638 09/23/2011 Active LIGHT CIGARETTE SMOKER (1-9 CIGS/DAY) 543042480 09/23/2011 Active CHEST PAIN, NON-CARDIAC 218340413 10/22/2011 Active DEPRESSION 27414761 10/22/2011 Active OTITIS MEDIA 48738611 02/08/2012 Active POST TERM , DELIVERED WITH OR 657259595 08/14/2012 Active WITHOUT MENTION OF ANTEPARTUM CONDITION IMMEDIATE HEMORRHAGE, 41808621 08/23/2012 Active URINARY TRACT INFECTION 10680513 08/23/2012 Active Personal history of urinary calculi 049761474 Active Results Unknown or Not Available. Medications Medication Code Dose Units Frequency Route Modification Start Stop Date/Time Date/Time Oral 454602 1 EACH Daily ORAL 08/16/2012 Tablet 12:47 Medications Administered Unknown or Not Available. Encounters Encounter Diagnosis Diagnosis Code Start Date THRT CRYSTAL LABOR-ANTEPART 57139 08/25/2013 Social History Smoking Status Code Start Date End Date Never smoker 442809301 Patient Decision Aids Unknown or Not Available. Discharge Instructions You were admitted to [facility] on 08/25/2013 with a principal diagnosis of THRT CRYSTAL LABOR-ANTEPART. You were discharged from [facility] on 08/25/2013. Should you have any questions prior to [...]
--- OUTSIDE RECORDS SUMMARY | 2016-06-30 20:07 | XMS REPORT | CCD ---
:1995 Author Name GONSALO GALLOWAY Address [address] Unavailable [place], [place] [phone] Care Team Providers Name Role Phone MIKE SOUSA Attending Physician Unavailable Vital Signs Vital Sign Value Unit Date/Time Recent/Initial? Weight Measured 177 lbs 08/13/2014 13:32 Initial VS Height 64 in 08/13/2014 13:32 Initial VS BMI (Body Mass Index) 30.38 kg/m^2 08/13/2014 13:32 Initial VS BSA (Body Surface Area) 1.9 m^2 08/13/2014 13:32 Initial VS BP Systolic 105 mmHg 08/13/2014 13:45 Initial VS BP Diastolic 60 mmHg 08/13/2014 13:45 Initial VS Respiratory Rate 20 bpm 08/13/2014 13:45 Initial VS Heart Rate 112 bpm 08/13/2014 13:45 Initial VS Body Temperature 96.2 degrees 08/13/2014 13:45 Initial VS Allergies Allergy Code Allergy Type Reaction Status TRAMADOL 71770 Drug allergy HIVES Active Procedures Unknown or [...] Tdap 115 09/09/2013 Tdap 115 06/23/2014 Novel ibuhkjfit-V8L6-34 127 04/27/2009 Influenza, seasonal, injectable 141 01/14/2014 no vaccine administered 998 1993 Problems Problem Code Start Date Resolved Date Status BRONCHITIS 02446639 02/01/2011 Active ABDOMINAL PAIN 97356254 09/23/2011 Active LIGHT CIGARETTE SMOKER (1-9 CIGS/DAY) 995692522 09/23/2011 Active CHEST PAIN, NON-CARDIAC 131581005 10/22/2011 Active DEPRESSION 58117478 10/22/2011 Active OTITIS MEDIA 09565756 02/08/2012 Active POST TERM , DELIVERED WITH OR 406301651 08/14/2012 Active WITHOUT MENTION OF ANTEPARTUM CONDITION IMMEDIATE HEMORRHAGE, 72649710 08/23/2012 Active URINARY TRACT INFECTION 76958122 08/23/2012 Active Personal history of urinary calculi 551267961 Active Normal delivery 89356381 09/07/2013 Active Results URINALYSIS - Collect Date/Time: 08/13/2014 14:59 Test Name Code Test Result Test Units Test Ref Range COLOR UR Yellow N/A NORMAL:YELLOW CLARITY UR SlCloudy N/A NORMAL:CLEAR SP GRAV UR 1.020 N/A NORMAL:1.000-1.030 PH UR 7.0 N/A NORMAL:5.0-8.5 PROTEIN UR 1+ N/A NORMAL:NEGATIVE GLUCOSE UR Negative N/A NORMAL:NEGATIVE KETONE UR Negative N/A NORMAL:NEGATIVE BILIRUBIN UR Negative N/A NORMAL:NEGATIVE BLOOD UR 2+ N/A NORMAL:NEGATIVE LEUK UR Negative N/A NORMAL:NEGATIVE NITRITE UR Negative N/A NORMAL:NEGATIVE MICROSCOPIC NOT INDICAT N/A CULTURE? NO N/A Active Medications Medication Code Dose Units Frequency Route Modification Start Date/Time Latuda 20MG Oral 1093666 20 MILLIGRAMS DAILY ORAL 08/01/2014 Tablet 22:39 Macrodantin 100MG 523370 100 MILLIGRAMS DAILY ORAL 08/01/2014 Oral Capsule 22:39 Formula [id number] 1 EACH DAILY ORAL 02/16/2014 Oral Tablet 12:25 Medications Administered During Visit Unknown or Not Available. Encounters Encounter Diagnosis Diagnosis Code Start Date THREAT LABOR NEC-ANTEPAR 54830 08/13/2014 Social History Smoking Status Code Start Date End Date Former smoker 1366623 Patient Decision Aids Patient Decision Aid Labor Discharge Instructions You were admitted to [facility] on 08/13/2014 with a principal diagnosis of THREAT LABOR NEC-ANTEPAR. You were discharged from [facility] on 08/13/2014. Should you have any questions prior to [...]
--- OUTSIDE RECORDS SUMMARY | 2016-06-30 20:07 | XMS REPORT | CCD ---
:1995 Author Name NISHI OROPEZA Address [address] [facility] Unavailable [place], [place] [id number] Care Team Providers Name Role Phone EUGENIO ALANIS MD Attending Physician Unavailable EUGENIO ALANIS MD Er Physician 1 Unavailable AGNES Rod Registered Nurse Unavailable Vital Signs Vital Sign Value Unit Weight Measured 134 lbs Height 62 in BMI (Body Mass Index) 24.51 kg/m^2 BSA (Body Surface Area) 1.63 m^2 Allergies Allergy Code Allergy Type Reaction Status No Known Allergies 0 No known allergies Active Procedures Unknown. History of Immunizations Unknown. Problems Problem Code Start Date Resolved Date Status BRONCHITIS 73287329 02/01/2011 Active ABDOMINAL PAIN 29438475 09/23/2011 Active LIGHT CIGARETTE SMOKER (1-9 CIGS/DAY) 331722043 09/23/2011 Active CHEST PAIN, NON-CARDIAC 862744978 10/22/2011 Active DEPRESSION 44071728 10/22/2011 Active OTITIS MEDIA 24672089 02/08/2012 Active POST TERM , DELIVERED WITH OR 332462708 08/14/2012 Active WITHOUT MENTION OF ANTEPARTUM CONDITION IMMEDIATE HEMORRHAGE, 13292310 08/23/2012 Active URINARY TRACT INFECTION 05715807 08/23/2012 Active Personal history of urinary calculi 007807878 Active Results UA W/MICROSCOPIC EXAM Test Name Code Test Result Test Units Test Date/Time COLOR UR YELLOW N/A 04/18/2013 22:19 CLARITY UR CLEAR N/A 04/18/2013 22:19 SP GRAV UR 1.020 N/A 04/18/2013 22:19 PH UR 6.5 N/A 04/18/2013 22:19 PROTEIN UR 1+ N/A 04/18/2013 22:19 GLUCOSE UR NEGATIVE N/A 04/18/2013 22:19 KETONE UR NEGATIVE N/A 04/18/2013 22:19 BILIRUBIN UR NEGATIVE N/A 04/18/2013 22:19 BLOOD UR NEGATIVE N/A 04/18/2013 22:19 LEUK UR TRACE N/A 04/18/2013 22:19 NITRITE UR NEGATIVE N/A 04/18/2013 22:19 MICRO SEE BELOW N/A 04/18/2013 22:19 RBC/hpf 0 N/A 04/18/2013 22:19 WBC/hpf 5 N/A 04/18/2013 22:19 EPI UR 30-40 N/A 04/18/2013 22:19 BACTERIA UR FEW N/A 04/18/2013 22:19 CULTURE? YES N/A 04/18/2013 22:19 Medications Medication Code Dose Units Frequency Route Modification Start Stop Date/Time Date/Time Oral [id number] 1 EACH Daily ORAL 08/16/2012 Tablet 12:47 Medications Administered Unknown. Encounters Encounter Diagnosis Diagnosis Code Start Date FEM GENITAL SYMPTOMS NOS 6259 04/18/2013 Social History Smoking Status Code Start Date End Date Former smoker [id number] Patient Decision Aids Patient Decision Aid [facility] Patient Educational Materials Instructions You were admitted to [facility] on 04/18/2013 with a principle diagnosis of FEM GENITAL SYMPTOMS NOS. You were discharged from [facility] on 04/18/2013. Should you have any questions prior to discharge, please contact a member of your healthcare team. If you have left the hospital and have any questions, please contact your primary care physician. Chief Complaint and Reason For Visit Chief Complaint Date of Onset ABDOMINAL PAIN Function Status Unknown. Plan of Care Unknown. Referral/Transition of Care Unknown.
--- OUTSIDE RECORDS SUMMARY | 2016-06-30 20:07 | XMS REPORT | CCD ---
:1995 Author Name SHEREEN MARINELLI Address [address] [facility] Unavailable [place], [place] [id number] Care Team Providers Name Role Phone TRESSA JONES Attending Physician Unavailable O., JESSICA BEY Registered Nurse Unavailable Vital Signs Vital Sign Value Unit Date/Time Recent/Initial? Weight Measured 137 lbs 06/20/2013 12:40 Initial VS Height 63 in 06/20/2013 12:40 Initial VS BMI (Body Mass Index) 24.27 kg/m^2 06/20/2013 12:40 Initial VS BSA (Body Surface Area) 1.66 m^2 06/20/2013 12:40 Initial VS BP Systolic 110 mmHg 06/20/2013 12:48 Initial VS BP Diastolic 62 mmHg 06/20/2013 12:48 Initial VS Respiratory Rate 18 bpm 06/20/2013 12:48 Initial VS Heart Rate 114 bpm 06/20/2013 12:48 Initial VS Body Temperature 98.9 degrees 06/20/2013 12:48 Initial VS Weight Measured 137 lbs 06/20/2013 12:56 Most Recent VS Height 63 in 06/20/2013 12:56 Most Recent VS BMI (Body Mass Index) 24.27 kg/m^2 06/20/2013 12:56 Most Recent VS BSA (Body Surface Area) 1.66 m^2 06/20/2013 12:56 Most Recent VS Allergies Allergy Code Allergy Type Reaction Status No Known Allergies 0 No known allergies Active Procedures Unknown. History of Immunizations Unknown. Problems Problem Code Start Date Resolved Date Status BRONCHITIS 66369272 02/01/2011 Active ABDOMINAL PAIN 09098427 09/23/2011 Active LIGHT CIGARETTE SMOKER (1-9 CIGS/DAY) 511414771 09/23/2011 Active CHEST PAIN, NON-CARDIAC 819550568 10/22/2011 Active DEPRESSION 19992395 10/22/2011 Active OTITIS MEDIA 29364782 02/08/2012 Active POST TERM , DELIVERED WITH OR 576479567 08/14/2012 Active WITHOUT MENTION OF ANTEPARTUM CONDITION IMMEDIATE HEMORRHAGE, 84510254 08/23/2012 Active URINARY TRACT INFECTION 07820811 08/23/2012 Active Personal history of urinary calculi 912197273 Active Results Unknown. Medications Medication Code Dose Units Frequency Route Modification Start Stop Date/Time Date/Time Oral [id number] 1 EACH Daily ORAL 08/16/2012 Tablet 12:47 Medications Administered Unknown. Encounters Encounter Diagnosis Diagnosis Code [place] [address] 06/20/2013 Social History Smoking Status Code Start Date End Date Never smoker [id number] Patient Decision Aids Unknown. Discharge Instructions You were admitted to [facility] on 06/20/2013 with a principle diagnosis of SPOTTING COMPLICATING , AN. You were discharged from [facility] on 06/20/2013. Should you have any questions prior to discharge, please contact a member of your healthcare team. If you have left the hospital and have any questions, please contact your primary care physician.Diet:Regular.Medication Instructions:Continue vitamins, Tylenol 650mg every 4-6hrs for discomfor.Discharge Dietary Instructions:Well balanced diet, Avoid gaseous,spicy or constipating food.Adequate fluid intake, 6-8 glasses a day.Physician follow up:Dr Servin's office: , Followup appt PREVIOSLY SCHEDULED UNLESSYOU FEEL YOU NEED TO BE SEEN SOONER.Activity:Get plenty of rest/sleep.Additional Instructions:Rest on left side as much as possible, Drink 10-12 glasses of fluid daily.Avoid caffeinated drinks.For undelivered patients, call MD if:Severe headaches, blurred vision, Dizziness.Increased swelling that doesn't go away, Vaginal bleeding.Water breaks or you have leaking fluid, Contractions in a regular pattern.You do not feel your baby move in 8 hrs, Uncontrolled urge to push.Change in condition that concerns you , Any questions about your condition.Patient condition at discharge:Stable, NST reactive, Not in labor.Discharge via:Ambulatory.Accompanied by:Friends.Nurses Note:Notes: MAY CALL OB UNIT WITH ANY QUESTIONS OR CONCERNS [phone]. Chief Complaint and Reason For Visit Unknown. Function Status Unknown. Plan of Care Unknown. Referral/Transition of Care Unknown.
--- OUTSIDE RECORDS SUMMARY | 2016-06-30 20:07 | XMS REPORT | CCD ---
:1995 Author Name SHEREEN MARINELLI Address [address] [facility] Unavailable [place], [place] [id number] Care Team Providers Name Role Phone SOHEILA HERMAN Attending Physician Unavailable Vital Signs Vital Sign Value Unit Date/Time Recent/Initial? Weight Measured 137 lbs 06/25/2013 19:37 Initial VS Height 52 in 06/25/2013 19:37 Initial VS BMI (Body Mass Index) 35.62 kg/m^2 06/25/2013 19:37 Initial VS BSA (Body Surface Area) 1.51 m^2 06/25/2013 19:37 Initial VS BP Systolic 107 mmHg 06/25/2013 19:37 Initial VS BP Diastolic 51 mmHg 06/25/2013 19:37 Initial VS Respiratory Rate 16 bpm 06/25/2013 19:37 Initial VS Heart Rate 95 bpm 06/25/2013 19:37 Initial VS Body Temperature 98.8 degrees 06/25/2013 19:37 Initial VS Weight Measured 137 lbs 06/25/2013 19:47 Most Recent VS Height 52 in 06/25/2013 19:47 Most Recent VS BMI (Body Mass Index) 35.62 kg/m^2 06/25/2013 19:47 Most Recent VS BSA (Body Surface Area) 1.51 m^2 06/25/2013 19:47 Most Recent VS BP Systolic 110 mmHg 06/25/2013 21:10 Most Recent VS BP Diastolic 56 mmHg 06/25/2013 21:10 Most Recent VS Respiratory Rate 16 bpm 06/25/2013 21:10 Most Recent VS Heart Rate 92 bpm 06/25/2013 21:10 Most Recent VS Allergies Allergy Code Allergy Type Reaction Status No Known Allergies 0 No known allergies Active Procedures Unknown. History of Immunizations Unknown. Problems Problem Code Start Date Resolved Date Status BRONCHITIS 93835303 02/01/2011 Active ABDOMINAL PAIN 79205136 09/23/2011 Active LIGHT CIGARETTE SMOKER (1-9 CIGS/DAY) 273358589 09/23/2011 Active CHEST PAIN, NON-CARDIAC 705828899 10/22/2011 Active DEPRESSION 13529644 10/22/2011 Active OTITIS MEDIA 71149877 02/08/2012 Active POST TERM , DELIVERED WITH OR 789060753 08/14/2012 Active WITHOUT MENTION OF ANTEPARTUM CONDITION IMMEDIATE HEMORRHAGE, 43534892 08/23/2012 Active URINARY TRACT INFECTION 51773761 08/23/2012 Active Personal history of urinary calculi 037370178 Active Results PLACENTAL ALPHA MICROGLOBULIN-1 Test Name Code Test Result Test Units Test Date/Time ROM TEST NEGATIVE N/A 06/25/2013 19:49 Medications Medication Code Dose Units Frequency Route Modification Start Stop Date/Time Date/Time Oral [id number] 1 EACH Daily ORAL 08/16/2012 Tablet 12:47 Medications Administered Medication Dose Units Frequency Route Date/Time of Last Dose terBUTaline SULF (BRETHINE) 0.25 MG X1 SUBCUTANEOUS 06/25/2013 20:35 INJ : 1MG Encounters Encounter Diagnosis Diagnosis Code Start Date THRT CRYSTAL LABOR-ANTEPART 78565 06/25/2013 Social History Smoking Status Code Start Date End Date Never smoker [id number] Patient Decision Aids Unknown. Discharge Instructions You were admitted to [facility] on 06/25/2013 with a principle diagnosis of THRT CRYSTAL LABOR-ANTEPART. You were discharged from [facility] on 06/25/2013. Should you have any questions prior to discharge, please contact a member of your healthcare team. If you have left the hospital and have any questions, please contact your primary care physician. Chief Complaint and Reason For Visit Unknown. Function Status Unknown. Plan of Care Unknown. Referral/Transition of Care Unknown.
[2016-06-30 20:21] LABS: Hematocrit 42.1 % (37.0-47.0); Hemoglobin 13.9 gm/dL (12.5-16.0); Mean Cell Volume 89.2 fl (78-100); Mean Corpuscular Hemoglobin 29.4 pg (27-31); Platelet Count 316 K/mm3 (150-450); Red Blood Count 4.72 M/mm3 (4.2-5.4); White Blood Count 9.4 K/mm3 (4.0-10.5)
[2016-06-30 20:24] LABS: Total Cells Counted 100
[2016-06-30] MEDS ORDERED: ONDANSETRON HCL/PF 2 MG/ML VIAL ONE (20:26)
[2016-06-30] MEDS ORDERED: KETOROLAC TROMETHAMINE 30 MG/ML VIAL ONE (20:26)
[2016-06-30 20:33] LABS: Albumin * 3.8 gm/dl (3.4-5.0); Anion Gap 15.8 mmol/L (6.8-13.8); BUN/Creatinine Ratio 12.2 (9.0-21.6); Bilirubin, Total 0.2 mg/dL (0.0-1.1); Ca. Corrected For Albumin 8.5 mg/dL (8.4-10.2); Calcium * 8.7 mg/dL (7.9-10.9); Carbon Dioxide 24.8 mmol/L (24-32.6); Potassium 3.6 mmol/L (3.4-4.6); Total Protein 7.6 gm/dL (6.2-8.2)
[2016-06-30 20:45] LABS: Eosinophil 4 % (0-3); Lymphocyte 47 % (20-51); Monocyte 5 % (0-9); Neutrophil 44 % (42-75); Neutrophil # 4.1 K/mm3 (1.3-6.0); Platelet Estimate Normal (NORMAL); RBC Morphology Normal (NORMAL)
[2016-06-30] MEDS ORDERED: ONDANSETRON 4 MG TAB.RAPDIS PO ONE (21:47)
[2016-06-30] MEDS ORDERED: ONDANSETRON 4 MG TAB.RAPDIS ONE (21:55)
--- NOTE | 2016-06-30 21:56 | ERNOTE ---
Back Pain ER HPI Date of Service: 06/30/16 Presenting Symptoms: other - bilateral lower quadrant pain, nausea Time Seen by Provider: 06/30/16 19:58 Source: patient Exam Limitations: no limitations Immunizations: IMMUNIZATION HX Immunizations Up to Date Yes History of Influenza Vaccine Yes Hx Pneumococcal Vaccination No Allergies/Adverse Reactions: Allergies meloxicam Allergy (Unknown, Verified 06/30/16 20:49) ketorolac tromethamine [From Toradol] Allergy (Verified 06/30/16 20:49) Pt states she is not allergic to this medication and can take it without problem tramadol Allergy (Verified 06/30/16 20:49) itching Home Medications: HOME MEDICATIONS clonazePAM [Klonopin] 1 mg PO HS 09/03/15 [Last Taken Unknown] Cariprazine HCl [Vraylar] 3 mg PO DAILY 09/30/15 [Last Taken Unknown] Ondansetron [Zofran Odt] 4 mg PO Q6H PRN #20 tab 06/30/16 [Last Taken Unknown] - Pain Score Pain Score #1 Pain Score: 9 Pain Score #2 Pain Score: 1 Narrative: Patient is a 21 year old female who presents to the ED with complaints of pain beginning one week ago to bilateral lower quadrants of abdomen radiating into bilateral lower back with nausea. Denies fever, vomiting. States she has a history of kidney stones and noticed blood in her urine today Date (Duration): 06/22/16 Timing: Reports: constant, getting worse Quality/Severity: Reports: moderate Location of pain: Reports: other - bilateral lower quadrants radiating into bilateral lower back areas Recent Injury?: Reports: no Possible Precipitating Factor: Reports: none Modifying Factors - (Improves): Reports: nothing Modifying Factors - (Worsens): Reports: movement to right, movement to left, movement flexion Associated Symptoms: Reports: nausea/vomiting Review of Systems - Review of Systems Constitutional: Present: no symptoms reported. Absent: fever, chills, diaphoresis, fatigue, malaise, weight loss EYE: Present: no symptoms reported ENT: Present: no symptoms reported Respiratory: Present: no symptoms reported. Absent: shortness of breath, cough Cardiology: Present: no symptoms reported. Absent: chest pain, palpitations, syncope Gastrointestinal/Abdominal: Present: nausea, abdominal pain, eating less, drinking less. Absent: vomiting, diarrhea Genitourinary: Present: hematuria Musculoskeletal: Present: muscle pain - bilateral lower back area Skin: Present: no symptoms reported. Absent: rash, dryness Neurological: Present: no symptoms reported Endocrine: Present: no symptoms reported Hematologic/Lymphatic: Present: no symptoms reported Psych: Present: no symptoms reported - Patient's Past Medical History Patient History - Medical: Anxiety, Depression Patient History - Cardiac/Respiratory: Asthma Patient History - Cancer: No Hx of Cancer Patient History - Surgical Procedures: Ear Tubes Patient History - Other: None - Social History Living Situations: home Abuse History: No History of abuse Psych History: No pertinent hx Does anyone smoke in the home?: No Smoking Status: Never smoker Alcohol Use: none Drug Use: none - Immunizations Immunizations Up to Date: Yes Hx Pneumococcal Vaccination: No History of Influenza Vaccine: Yes Physical Exam - Physical Exam General Appearance: Present: wd/wn, alert, no apparent distress Eye Exam: Normal inspection: bilateral, PERRL: bilateral Ears, Nose, Throat: Present: normal pharynx. Absent: dry mucous membranes Neck: Present: normal inspection, nontender, supple, full range of motion. Absent: lymphadenopathy (R), lymphadenopathy (L) Respiratory: Present: no respiratory distress, normal breath sounds, no accessory muscle use, chest nontender, lungs clear Cardiovascular/Chest: Present: regular rate, rhythm, no murmur, normal peripheral pulses Peripheral Pulses: N=norm/S=strong/W=weak/B=bound/A=absent: Radial (R): Normal, Radial (L): Normal Gastrointestinal/Abdominal: Present: normal bowel sounds, nondistended, soft, no organomegaly, tenderness - bilateral lower quadrants Rectal Exam: Present: deferred Back Exam: Present: normal inspection, normal range of motion, CVA tenderness (R ), CVA tenderness (L) Extremity Exam: Present: normal inspection, non-tender, normal range of motion, no edema Neurological Exam: Present: alert, oriented, normal mood/affect, no motor/ sensory deficits Skin Exam: Present: normal color, warm/dry Lymphatic Exam: Present: no adenopathy ED Progress - Results and Orders Patient's Lab Results:: I have reviewed the patient's lab results. - Vital Signs Patient's Vital Signs:: I have reviewed the patient's vital signs. Vital Signs: Vital Signs 06/30/16 06/30/1606/30/17 18:30 18:42 19:30 Temperature 37.9 C H 36.6 C 37.7 C H Pulse Rate 88 85 85 Respiratory 18 14 16 Rate Blood Pressure 109/77 107/79 112/75 O2 Sat by Pulse 98 97 98 Oximetry 06/30/16 06/30/16 06/30/16 19:51 20:25 21:00 Temperature 36.9 C 37.4 C Pulse Rate 84 85 84 Respiratory 14 14 14 Rate Blood Pressure 110/76 112/79 112/76 O2 Sat by Pulse 96 100 99 Oximetry - CT/Ultrasound CT/Ultrasound Narrative: Negative study without signs of urinary stones, hydronephrosis, free air or fluid. Normal appendix - Progress/Reassessment Chief Complaint: Back Pain Progress:: Improved Progress Note-Subjective: 06/30/16 21:53 Continues to have no vomiting or fever. Departure Clinical Impression: Nausea Abdominal pain Qualifiers: Abdominal location: unspecified location Qualified Code(s): R10.9 - Unspecified abdominal pain - Departure Disposition: Home self-care Condition: Good Instructions: Nausea, Adult, Abdominal Pain, Adult, [id number] Additional Instructions: Zofran for nausea. [employer] diet until nausea subsides. Return if pain worsens, fever, chills vomiting occurs. Follow up with physician in 1-2 week Prescriptions: Ondansetron [Zofran Odt] 4 mg PO Q6H PRN #20 tab PRN Reason: Nausea
[2016-06-30 22:40] VITALS: BP 114/79
== END 2016-06-30 22:03 | disposition home or self-care (01) ==
LOC: ER 17:56
DX: R11.0 Nausea (principal); R10.32 Left lower quadrant pain; R10.31 Right lower quadrant pain; F41.8 Other specified anxiety disorders